=== PATIENT | male | born 1955 | race Caucasian/White ===

== ENCOUNTER 2022-09-10 12:10 | Inpatient (IN) | payer MEDICARE, OTHER ==
[~2022-09-10] VITALS: Ht 167.6 cm; Wt 90.7 kg
[2022-09-10 12:58] LABS: BASOPHILS # (AUTO) 0.1 K/uL (0.0-0.2); BASOPHILS % (AUTO) 0.7 % (0.0-2.0); EOSINOPHILS % (AUTO) 0.8 % (0.0-6.0); HEMATOCRIT 42 % (39-51); HEMOGLOBIN 14.1 g/dL (13.5-17.5); LYMPHOCYTES # (AUTO) 2.1 K/uL (0.8-4.8); LYMPHOCYTES % (AUTO) 17.6 % (20.0-44.0); MEAN CORPUSCULAR HGB CONC 34 g/dl (31.0-36.0); MEAN CORPUSCULAR VOLUME 93 fL (80-96); MONOCYTES # (AUTO) 0.8 K/uL (0.1-1.30); MONOCYTES % (AUTO) 6.5 % (2.0-12.0); NEUTROPHILS # (AUTO) 8.7 K/uL (1.8-8.9); NEUTROPHILS % (AUTO) 74.4 % (43.0-81.0); PLATELET COUNT (AUTO) 267 K/uL (150-450); RED BLOOD CELL COUNT(AUTO) 4.45 MIL/uL (4.5-6.0); WHITE BLOOD COUNT (AUTO) 11.7 K/uL (4.3-11.0)
[2022-09-10 13:18] LABS: CALCIUM, SERUM 8.8 mg/dL (8.5-10.1); CARBON DIOXIDE 23 mmol/L (21-32); CHLORIDE 98 mmol/L (98-107); CREATININE 1.5 mg/dL (0.6-1.3); GLUCOSE 199 mg/dL (74-106); POTASSIUM 3.2 mmol/L (3.5-5.1); SODIUM SERUM 132 mmol/L (136-145); UREA NITROGEN, BLOOD 13 mg/dL (7-18)
[2022-09-10 13:27] LABS: ALANINE AMINOTRANSFERASE 23 U/L (12-78); ALBUMIN 3.2 g/dL (3.4-5.0); ALCOHOL, BLOOD < 3 mg/dL (0-0); ALKALINE PHOSPHATASE 104 U/L (46-116); ASPARTATE AMINOTRANSFERASE 19 U/L (15-37); BILIRUBIN,DIRECT 0.1 mg/dL (0.0-0.2); BILIRUBIN,TOTAL 0.4 mg/dL (0.2-1.0); TOTAL PROTEIN, SERUM 7.1 g/dL (6.4-8.2)
[2022-09-10 13:29] LABS: ACETAMINOPHEN 0 ug/ml (10-30)
[2022-09-10 13:48] LABS: BILIRUBIN,URINE NEGATIVE (NEGATIVE); LEUKOCYTE ESTERASE ,URINE NEGATIVE (NEGATIVE); NITRITE, URINE NEGATIVE (NEGATIVE); PROTEIN,URINE 1+ mg/dl (NEGATIVE); UGLUCOSE NEGATIVE (NEGATIVE); UROBILINOGEN,URINE 0.2 EU/dL (0.2)
[2022-09-10 13:53] LABS: COLOR,URINE STRAW (YELLOW)
[2022-09-10 14:09] LABS: BACTERIA,URINE Rare /HPF (None Seen); RBC,URINE 0-2 /HPF (0-2); SQUAMOUS EPITHELIAL CELL,UR Few /HPF (None Seen); WBC,URINE 0-2 /HPF (0-3)
--- NOTE | 2022-09-10 17:50 | NUR ---
Per MD patient is medically cleared for admission to [facility]
--- NOTE | 2022-09-10 18:41 | NUR ---
MOVE SHEET SUBMITTED.
--- NOTE | 2022-09-10 18:58 | NUR ---
GOT BED 216-A. ADMITTING MADE AWARE.
[2022-09-10] MEDS ORDERED: TEMA15CA PO (19:21)
[2022-09-10] MEDS ORDERED: HALO100A3 IM (19:21)
[2022-09-10] MEDS ORDERED: TRAM50TA2 PO (19:21)
[2022-09-10] MEDS ORDERED: HALO5TAB PO (19:21)
[2022-09-10] MEDS ORDERED: LISI-768 PO (19:21)
[2022-09-10] MEDS ORDERED: ACET325T53 PO (19:21)
[2022-09-10] MEDS ORDERED: ZIPR20CA2 PO (19:21)
[2022-09-10] MEDS ORDERED: METO50TA16 PO (19:21)
[2022-09-10] MEDS ORDERED: OMEP20CA15 PO (19:21)
[2022-09-10] MEDS ORDERED: LORA-259 PO ×2 (19:21)
[2022-09-10] MEDS ORDERED: AMLO10TA4 PO (19:21)
[2022-09-10] MEDS ORDERED: CLONIDINE HCL 0.1 MG TABLET PO PRN (19:30)
--- NOTE | 2022-09-10 19:51 | NUR ---
REPORT GIVEN TO RONY GOVEA RN FOR JEREMY
[2022-09-10] MEDS ORDERED: POTASSIUM CHLORIDE 20 MEQ TAB.PRT.SR PO ONE ×2 (20:00→20:01)
--- NOTE | 2022-09-10 20:30 | NUR ---
PT TRANSFERRING TO [facility]IA HOSPITAL PROTOCOL. ALL BELONGINGS WITH PT.
[2022-09-10] MEDS ORDERED: ACETAMINOPHEN 325 MG TABLET PO PRN (21:00)
[2022-09-10] MEDS ORDERED: MAGNESIUM HYDROXIDE 30 ML UDC PO PRN (21:00)
[2022-09-10] MEDS ORDERED: BLOOD SUGAR DIAGNOSTIC 1 EACH STRIP IN ONE (21:00)
[2022-09-10] MEDS ORDERED: MAG HYDROX/AL HYDROX/SIMETH 30 ML UDC PO PRN (21:00)
[2022-09-10] MEDS ORDERED: TEMAZEPAM 7.5 MG CAPSULE PO PRN (21:00)
[2022-09-10] MEDS: LORAZEPAM 0.5 MG TABLET PO PRN (21:08)
--- NOTE | 2022-09-10 21:10 | NUR ---
RN NOTES: ANXIETY PT.C/O FEELING ANXIOUS , PARANOID, YELLING SCREAMING , UNCOOPERTIVE,NONREDIRECTABLE ,PRN ATIVAN 0.5 MG PO GIVEN PER PT. REQUEST, WILL CONTINUE TO MONITOR.
[2022-09-10 22:00] VITALS: BP 135/78
[2022-09-10] MEDS ORDERED: DEXTROSE 50%-WATER 50 ML DISP.SYRIN IV PRN (22:30)
--- NOTE | 2022-09-10 23:42 | NUR ---
RN NOTES : ADMISSION NOTES: ADMITTED THIS 66Y/O MALE PATIENT ADMIT FROM [facility] ED , INITIALLY FROM [facility]. ADMITTED TO 5150 HOLD PER HOLD DTS DTO. DUE TO INCREASE AGGRESSIVE BEHAVIOR,REFUSING MEDS, UPON FACE TO FACE ASSESSMENT PATIENT IS A&O X2 ,EASILY AGITATED, PARANOID CONFUSED,BIZARRE BEHAVIOR,DISORGNIZED, DISHELVED, UNCOOPERTIVE,POOR DECISION MAKING, EPIOSDES OF YELLING SCREAMING DENIES SI /HI AT THIS TIME, PT. IS POOR HISTORIAN, POOR INSIGHT ,POOR JUDGEMENT , BOTH MD AWARE AND NOTIFIED OF THE ADMISSION, BELONGINGS CONTRABAND WERE DONE , PT. REFUSED SIGNS ADMISSION CONSENT PAPER DUE TO ANXIOUS,ENCOURAGED PT. TO TAKE SHOWER, REFUSED SKIN ASSESSMENT ,ENCOURAGED X3 BUT PT. STRONGLY REFUSED, PT. RIGHTS DISCUSS BY CRYSTAL SYRUP MAKER , PROVIDE THE PT. WITH HANDBOOK, AND MEDICATIONS GUIDE, ENVIRONMENTAL SAFETY CHECK DONE, ENCOURAGED PT. VERBALIZED ANY FEELING CONCERN TO STAFF, ORIENT TO UNIT POLICY, NO ACUTE DISTRESS NOTED,VITAL SIGNS WNL ,DENIES ANY PAIN AT THIS TIME,WILL CONTINUE TO MONITOR FOR Q15 SAFETY AND BEHAVIOR.
--- NOTE | 2022-09-10 23:53 | NUR ---
RN NOTES: REFUSED SKIN ASSESSMENT PT.REFUSED SKIN ASSESSMENT ,DUE TO ANXIOUS PARANOID, YELLING SCREAMING UNCOOPERTIVE, NONREDIRECTABLE , ENCOURAGED X3 PT. STRONGLY REFUSED, PER PT. MY SKIN IS FINE ,WILL CONTINUE TO MONITOR.
[2022-09-11] MEDS: ACETAMINOPHEN 325 MG TABLET PO PRN ×3 (00:27→20:51)
--- NOTE | 2022-09-11 01:07 | NUR ---
RN NOTES: INSOMNIA PT. C/O INSOMNIA PRN RESTORIL 7.5 MG PO GIVEN PER PT. REQUEST , WILL CONTINUE TO MONITOR.
[2022-09-11] MEDS: BLOOD SUGAR DIAGNOSTIC 1 EACH STRIP IN SCH ×4 (07:36→21:09)
[2022-09-11 08:00] VITALS: BP 170/94
--- NOTE | 2022-09-11 08:00 | NUR ---
RN-NOTES PATIENT BS 162MG/DL, REFUSED COVERAGE OF 3 UNITS REGULAR INSULIN. PATIENT STATED" I DON'T NEED ANY INSULIN". OFFERED X3.
[2022-09-11] MEDS: PANTOPRAZOLE 40 MG TABLET.DR PO SCH (08:04)
[2022-09-11] MEDS: LORAZEPAM 0.5 MG TABLET PO PRN (08:05)
--- NOTE | 2022-09-11 08:11 | NUR ---
RN-NOTES NOTED PATIENT RESPONDING TO INTERNAL STIMULI ,TALKING TO SELF,SCREAMING, AND YELLING IN HIS ROOM. ATIVAN 0.5MG P.O GIVEN PRN ORDER. WILL CONT. MONITORING FOR SAFETY AND BEHAVIOR.
[2022-09-11] MEDS: METOPROLOL TARTRATE 50 MG TABLET PO SCH ×2 (08:41→16:20)
[2022-09-11] MEDS: TRAMADOL HCL 50 MG TABLET PO SCH ×3 (08:41→16:20)
[2022-09-11] MEDS: LISINOPRIL (5MG) 5 MG TABLET PO SCH (08:42)
[2022-09-11] MEDS: AMLODIPINE BESYLATE 10 MG TABLET PO SCH (08:42)
--- NOTE | 2022-09-11 09:15 | NUR ---
RN-NOTES PATIENT LYING IN BED AWAKE,GUARDED,CALM AND QUIET AT THIS TIME. NO ACUTE DISTRESS NOTED.
--- NOTE | 2022-09-11 09:26 | NUR ---
KIM Initial Discharge Plan: Patient currently resides at [facility] located at [address] [place] [id number]; . KIM spoke with Viviana (Benefits Consultant); ([phone]) who stated that they would have to discuss with the facility/treatment team to see if pt is welcomed back. She stated pt has a SMITH Rodney (sister) ([phone]) who is involved in patient's care. KIM will contact the sister to gather collateral. KIM will work with the MD, treatment team, and family to help coordinate appropriate discharge.
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
--- NOTE | 2022-09-11 09:30 | NUR ---
Treatment Plan: Pt refused to sign treatment plan due to being suspicious and labile.
--- NOTE | 2022-09-11 09:48 | NUR ---
Social Work Note/Substance Abuse Intervention: Patient was provided with a brief substance abuse intervention and referred to [facility] ([phone]), [facility] ([phone]), and [facility] ([phone]) for smoking.
--- NOTE | 2022-09-11 09:54 | NUR ---
KIM Family: KIM contacted pt's sister Ronel ([phone]) to gather collateral. She stated that she is the DPOA and would want pt back to [facility]. She stated that she will send the documents of the DPOA. Sister stated that pt has been bouncing from hospital to hospital. She stated that she would want pt at the hospital for a month. KIM explained 2957/[id number] process. KIM also gave sister options of nursing facilities for her to review: [facility], [facility], [facility]. She stated she will let this technical report writer know which facility she would want pt to go too. Addendum: 09/11/22 at 1508 by KIM BRAUN Correction ([phone]) Ronel number
--- NOTE | 2022-09-11 11:12 | NUR ---
DPOA: Patient's sister Ronel ([phone]) is the DPOA and sent this principal technical writer document. KIM placed it in the patient's chart. Addendum: 09/11/22 at 1508 by KIM BRAUN Correction ([phone])
[2022-09-11] MEDS: LORAZEPAM 1 MG TABLET PO PRN ×2 (12:10→17:28)
[2022-09-11] MEDS: risperiDONE 1 MG TABLET PO SCH ×2 (12:10→16:19)
--- NOTE | 2022-09-11 12:15 | NUR ---
RN-NOTES NOTED PATIENT RESPONDING TO INTERNAL STIMULI ,TALKING TO SELF,SCREAMING, AND YELLING IN HIS ROOM. ATIVAN 1 MG P.O GIVEN PRN ORDER. WILL CONT. MONITORING FOR SAFETY AND BEHAVIOR.
--- NOTE | 2022-09-11 12:37 | NUR ---
RN-NOTES PATIENT BS 153 MG/DL, REFUSED COVERAGE OF 2 UNITS REGULAR INSULIN. OFFERED X3.
--- NOTE | 2022-09-11 13:15 | NUR ---
RN-NOTES PATIENT LYING IN BED AWAKE A/O X1,GUARDED,CALM AND QUIET AT THIS TIME. NO ACUTE DISTRESS NOTED.
--- NOTE | 2022-09-11 15:06 | NUR ---
Facility Contact: SW spoke with Viviana (Manager Garage); ([phone]) who stated that pt is not welcomed back and they cannot accept pt.
--- NOTE | 2022-09-11 15:09 | NUR ---
DPOA Contact: Patient's sister Ronel ([phone]) and notified that [facility] will not accept pt back. SW had given her options: [facility], [facility], [facility]. She was stating she will possibly want [facility].
[2022-09-11 16:00] VITALS: BP 106/68
--- NOTE | 2022-09-11 17:31 | NUR ---
RN-NOTES PATIENT RESPONDING TO INTERNAL STIMULI ,TALKING TO SELF,SCREAMING, AND YELLING IN HIS ROOM. ATIVAN 1 MG P.O GIVEN PRN ORDER. WILL CONT. MONITORING FOR SAFETY AND BEHAVIOR. PATIENT ALSO REFUSED ACCU CHECK DESPITE ENCOURAGEMENT. OFFERED X3
--- NOTE | 2022-09-11 18:20 | NUR ---
RN-NOTES PATIENT LYING IN BED AWAKE,A/O X1 GUARDED,CALM,NO ACUTE DISTRESS NOTED. NOTED PATIENT WITH EPISODE OF TALKING TO SELF,SCREAMING AND YELLING. REDIRECTED AND PRN MEDICATION GIVEN. COMPLIANT WITH MEDICATION. AMBULATORY STEADY GAIT. ALL NEEDS ATTENDED AND ANTICIPATED. WILL CONT. MONITORING FOR SAFETY AND BEHAVIOR. WILL ENDORSE TO INCOMING NURSE FOR CONTINUITY OF CARE.
[2022-09-11 20:00] VITALS: BP 109/72
--- NOTE | 2022-09-11 20:37 | NUR ---
RN NOTES: PATIENT RESTING IN ROOM, NO S/SX OF ACUTE DISTRESS NOTED. PATIENT EASILY AGITATED, DISORGANIZED, NEEDY DEMENDING, PARANOID,HYPERVERVAL, TALKING TO SELF, EPISODES OF SCREAMING YELLING, AGGRESSIVE , NEEDS FREQUENT REDIRECTION. FOCUS ON MEDS, ALL NEEDS ATTENDED AND ANTICIPATED, DENIES SI/HI AT THIS TIME.ENCOURAGE TO VERBALIZED ANY FEELING OR CONCERN, SAFETY MEASURES IN PLACE. WILL CONTINUE TO MONITOR .
[2022-09-11] MEDS: INSULIN REGULAR, HUMAN 100 UNIT/ML 3 ML VIAL SQ PRN (21:17)
--- NOTE | 2022-09-11 21:17 | NUR ---
RN NOTES: PT. BLOOD IS 150 MG/DL , AND PT. REFUSED REGULAR INSULLIN COVERAGE OF 2 UNITS, ENCOUARGED X3 STILL REFUSED . Addendum: 09/11/22 at 2138 by OMKAR TORRES RN RN NOTES: PT. BLOOD SUGAR IS 150 MG/DL , AND PT. REFUSED REGULAR INSULLIN COVERAGE OF 2 UNITS, ENCOUARGED X3 STRONGLY REFUSED .
[2022-09-11] MEDS: TEMAZEPAM 7.5 MG CAPSULE PO PRN (21:35)
--- NOTE | 2022-09-11 21:37 | NUR ---
RN NOTES:INSOMNIA PT. C/O INSOMNIA PRN RESTORIL 15 MG PO GIVEN PER PT. REQUEST , WILL CONTINUE TO MONITOR.
--- NOTE | 2022-09-11 23:38 | NUR ---
GPS RN NOTE, PATIENT HAS A COMPLAINT OF CHRONIC MIDDLE BACK PAIN AT 6 OUT 10 ON THE PAIN SCALE REQUESTING NAPROXEN AT THIS TIME. PATIENT VITAL SIGNS ARE STABLE. PAGED [facility] AND INFORMED KEVIN HODGSON NP OF MY FINDINGS. KEVIN HODGSON NP ORDERED NAPROXEN 500MG PO Q12HR PRN ORDERED. ALL ORDERS NOTED AND CARRIED OUT. WILL CONTINUE TO MONITOR THIS PATIENT WITH THE HELP OF STAFF.
[2022-09-12] MEDS ORDERED: NAPROXEN 500 MG TABLET PO PRN
[2022-09-12] MEDS: ACETAMINOPHEN 325 MG TABLET PO PRN (04:31)
[2022-09-12 07:20] LABS: BASOPHILS % (AUTO) 0.7 % (0.0-2.0); EOSINOPHILS % (AUTO) 1.2 % (0.0-6.0); HEMATOCRIT 43 % (39-51); HEMOGLOBIN 14.5 g/dL (13.5-17.5); LYMPHOCYTES # (AUTO) 1.2 K/uL (0.8-4.8); LYMPHOCYTES % (AUTO) 19.4 % (20.0-44.0); MEAN CORPUSCULAR HGB CONC 34 g/dl (31.0-36.0); MEAN CORPUSCULAR VOLUME 94 fL (80-96); MONOCYTES # (AUTO) 0.5 K/uL (0.1-1.30); NEUTROPHILS # (AUTO) 4.4 K/uL (1.8-8.9); NEUTROPHILS % (AUTO) 70.7 % (43.0-81.0); PLATELET COUNT (AUTO) 241 K/uL (150-450); RED BLOOD CELL COUNT(AUTO) 4.59 MIL/uL (4.5-6.0); WHITE BLOOD COUNT (AUTO) 6.3 K/uL (4.3-11.0)
[2022-09-12] MEDS: BLOOD SUGAR DIAGNOSTIC 1 EACH STRIP IN SCH ×4 (07:33→21:32)
[2022-09-12] MEDS: PANTOPRAZOLE 40 MG TABLET.DR PO SCH (07:42)
[2022-09-12 07:56] LABS: CALCIUM, SERUM 8.9 mg/dL (8.5-10.1); CREATININE 1.3 mg/dL (0.6-1.3); POTASSIUM 4.2 mmol/L (3.5-5.1)
[2022-09-12 08:00] VITALS: BP 150/79
[2022-09-12] MEDS: LORAZEPAM 1 MG TABLET PO PRN ×3 (08:05→23:50)
[2022-09-12] MEDS: LISINOPRIL (5MG) 5 MG TABLET PO SCH (08:06)
[2022-09-12] MEDS: risperiDONE 1 MG TABLET PO SCH ×3 (08:06→16:10)
[2022-09-12] MEDS: TRAMADOL HCL 50 MG TABLET PO SCH ×3 (08:06→16:10)
[2022-09-12] MEDS: METOPROLOL TARTRATE 50 MG TABLET PO SCH ×2 (08:07→16:10)
[2022-09-12] MEDS: AMLODIPINE BESYLATE 10 MG TABLET PO SCH (08:07)
--- NOTE | 2022-09-12 08:10 | NUR ---
RN-NOTES PATIENT REQUESTING ATIVAN FOR HIS ANXIETY. ATIVAN 1 MG P.O GIVEN PRN ORDER. WILL CONT. MONITORING FOR SAFETY AND BEHAVIOR. PATIENT ALSO REFUSED 3 UNITS OF REGULAR INSULIN EXPLANATION OF THE RISK AND BENEFITS. OFFERED X3
--- NOTE | 2022-09-12 09:15 | NUR ---
RN-NOTES PATIENT LYING IN BED AWAKE A/O X1,GUARDED,CALM AND QUIET AT THIS TIME. NO ACUTE DISTRESS NOTED.
--- NOTE | 2022-09-12 10:25 | NUR ---
RN-NOTES DR. PAINTER MADE AWARE OF PATIENT INSULIN COVERAGE REFUSAL.
--- NOTE | 2022-09-12 10:36 | NUR ---
Dr. Lozada called and gave orders
--- NOTE | 2022-09-12 11:58 | NUR ---
RN-NOTES PATIENT REFUSED ACCU CHECK EXPLANATION RISK AND BENEFITS.STATED" I DON'T NEED INSULIN, SO NO NEED". OFFERED X3
[2022-09-12 16:01] VITALS: BP 141/85
[2022-09-12] MEDS: BENZTROPINE MESYLATE (1 MG) 1 MG TABLET PO SCH (16:10)
--- NOTE | 2022-09-12 16:15 | NUR ---
RN-NOTES PATIENT RESPONDING TO INTERNAL STIMULI ,TALKING TO SELF,SCREAMING, AND YELLING IN HIS ROOM. ATIVAN 1 MG P.O GIVEN PRN ORDER. WILL CONT. MONITORING FOR SAFETY AND BEHAVIOR.
--- NOTE | 2022-09-12 17:21 | NUR ---
RN-NOTES PATIENT STILL REFUSED ACCU CHECK EXPLANATION RISK AND BENEFITS.STATED" I TOLD YOU I DON'T NEED INSULIN, SO NO NEED". OFFERED X3
--- NOTE | 2022-09-12 18:39 | NUR ---
RN-NOTES PATIENT LYING IN BED AWAKE,A/O X1 GUARDED,CALM AND QUIET AT THIS TIME,NO ACUTE DISTRESS NOTED. NOTED PATIENT WITH EPISODE OF TALKING TO SELF,SCREAMING AND YELLING. REDIRECTED AND PRN MEDICATION GIVEN. COMPLIANT WITH MEDICATION. AMBULATORY STEADY GAIT. ABLE TO MAKE NEEDS KNOWN TO THE STAFF.ALL NEEDS ATTENDED AND ANTICIPATED. WILL CONT. MONITORING FOR SAFETY AND BEHAVIOR. WILL ENDORSE TO INCOMING NURSE FOR CONTINUITY OF CARE.
[2022-09-12 20:00] VITALS: BP 136/78
--- NOTE | 2022-09-12 21:33 | NUR ---
RN NOTES: REFUSED ACCU CHECK PT. REFUSED ACCU CHECK , ENCOUARGED X3 EXPLINED RISKS AND BENEFITS, BUT PT. STRONGLY REFUSED DUE TO UNCOOPERTIVE , EASILY AGITATED, PARANOID, ANXIOUS, PER PT. STATES I DONT WANT IT .
[2022-09-12] MEDS: TEMAZEPAM 7.5 MG CAPSULE PO PRN (21:35)
--- NOTE | 2022-09-12 21:36 | NUR ---
RN NOTES: INSOMNIA PT. C/O INSOMNIA PRN RESTORIL 15 MG PO GIVEN PER PT. REQUEST , WILL CONTINUE TO MONITOR.
--- NOTE | 2022-09-12 23:53 | NUR ---
RN NOTES: ANXIETY PT.C/O FEELING ANXIOUS,PARANOID,RESTLESS ,PRN ATIVAN 1 MG PO GIVEN PER PT. REQUEST, WILL CONTINUE TO MONITOR.
[2022-09-13 08:00] VITALS: BP 157/85
[2022-09-13] MEDS: INSULIN REGULAR, HUMAN 100 UNIT/ML 3 ML VIAL SQ PRN ×3 (08:02→21:18)
[2022-09-13] MEDS: BLOOD SUGAR DIAGNOSTIC 1 EACH STRIP IN SCH ×4 (08:02→21:18)
[2022-09-13] MEDS: PANTOPRAZOLE 40 MG TABLET.DR PO SCH (08:03)
[2022-09-13] MEDS: AMLODIPINE BESYLATE 10 MG TABLET PO SCH (09:06)
[2022-09-13] MEDS: TRAMADOL HCL 50 MG TABLET PO SCH ×3 (09:06→16:48)
[2022-09-13] MEDS: BENZTROPINE MESYLATE (1 MG) 1 MG TABLET PO SCH ×2 (09:07→16:47)
[2022-09-13] MEDS: LISINOPRIL (5MG) 5 MG TABLET PO SCH (09:07)
[2022-09-13] MEDS: risperiDONE 1 MG TABLET PO SCH ×3 (09:07→16:47)
[2022-09-13] MEDS: METOPROLOL TARTRATE 50 MG TABLET PO SCH ×2 (09:07→16:48)
[2022-09-13] MEDS: LORAZEPAM 1 MG TABLET PO PRN ×3 (10:01→23:43)
--- NOTE | 2022-09-13 10:05 | NUR ---
NURSE NOTE: PT AGITATED AT THIS TIME. EPISODES OF SCREAMING. ATIVAN PO ADMINISTERED ORDERED. PT MOSHE WELL. WILL CONT TO MONITOR.
--- NOTE | 2022-09-13 11:00 | NUR ---
NURSE NOTE: PT CALM AT THIS TIME. STATES THAT HE'S NOT FEELING ANXIOUS AT THIS TIME. ATIVAN EFFECTIVE. WILL CONT TO MONITOR.
[2022-09-13 16:00] VITALS: BP 132/82
--- NOTE | 2022-09-13 16:20 | NUR ---
NURSE NOTE: PT AGITATED AT THIS TIME. HAVING EPISODES OF SCREAMING. ATIVAN PO ADMINISTERED ORDERE. PT MOSHE WELL. WILL CONT TO MONITOR.
--- NOTE | 2022-09-13 17:00 | NUR ---
NURSE NOTE: PT CALM AT THIS TIME. ATIVAN EFFECTIVE. WILL CONT TO MONITOR.
[2022-09-13 20:40] VITALS: BP 119/76
[2022-09-13] MEDS: TEMAZEPAM 7.5 MG CAPSULE PO PRN (21:19)
--- NOTE | 2022-09-13 21:21 | NUR ---
BS check done 140. Pt refused 2 units of insulin sliding scale. Risk and benefits explained. Offered x 3 and still refuse. No s/s of hypo/hyperglycemia noted. Pt c/o insomnia. Least restrictive measures ineffective. Restoril 15 mg po prn given as ordered. Will continue to monitor.
--- NOTE | 2022-09-13 22:30 | NUR ---
Post 1 hr Restoril effective. Pt asleep in bed easy to arouse. Respiration even and unlabored without SOB noted. No s/s of any kind of distress. Frequent visual check done for safety. Will continue to monitor. Will endorse to next shift.
--- NOTE | 2022-09-13 23:43 | NUR ---
Pt awake and c/o anxiety. Has episodes of uncontrolled outburst of yelling out loud. Least restrictive measures ineffective. Ativan 1 mg po prn given as ordered. Will continue to monitor.
--- NOTE | 2022-09-14 01:00 | NUR ---
Post 1 hr Ativan effective. Pt calm and asleep in bed easy to arouse. Frequent visual check done for safety. Will continue to monitor. Will endorse to next shift.
[2022-09-14] MEDS: BLOOD SUGAR DIAGNOSTIC 1 EACH STRIP IN SCH ×4 (07:56→21:19)
[2022-09-14] MEDS: PANTOPRAZOLE 40 MG TABLET.DR PO SCH (07:56)
[2022-09-14 08:00] VITALS: BP 155/98
[2022-09-14] MEDS: METOPROLOL TARTRATE 50 MG TABLET PO SCH ×2 (08:32→17:07)
[2022-09-14] MEDS: LISINOPRIL (5MG) 5 MG TABLET PO SCH (08:33)
[2022-09-14] MEDS: AMLODIPINE BESYLATE 10 MG TABLET PO SCH (08:33)
[2022-09-14] MEDS: BENZTROPINE MESYLATE (1 MG) 1 MG TABLET PO SCH ×2 (08:33→17:07)
[2022-09-14] MEDS: risperiDONE 1 MG TABLET PO SCH ×3 (08:34→17:07)
[2022-09-14] MEDS: TRAMADOL HCL 50 MG TABLET PO SCH ×3 (08:34→17:07)
[2022-09-14] MEDS: LORAZEPAM 1 MG TABLET PO PRN ×2 (09:50→20:40)
--- NOTE | 2022-09-14 09:51 | NUR ---
Pt c/o anxiety medicated with ativan 1mg po will continue to monitor .
--- NOTE | 2022-09-14 13:00 | NUR ---
Patient refused insulin BS 130 .Encourage still refused will continue to monitor .
[2022-09-14 16:00] VITALS: BP 120/88
[2022-09-14] MEDS: INSULIN REGULAR, HUMAN 100 UNIT/ML 3 ML VIAL SQ PRN ×2 (17:34→22:35)
--- NOTE | 2022-09-14 18:00 | NUR ---
Patient refused insulin BS 167 .Encourage still refused will continue to monitor .
[2022-09-14 19:38] VITALS: BP 115/77
--- NOTE | 2022-09-14 21:19 | NUR ---
RN NOTE PATIENT BLOOD SUGAR 166MG/DL. PATIENT REFUSED COVERAGE OF 3UNITS REGULAR INSULIN. OFFERED X3.
[2022-09-14] MEDS: TEMAZEPAM 7.5 MG CAPSULE PO PRN (21:26)
[2022-09-15 08:00] VITALS: BP 141/86
[2022-09-15] MEDS: PANTOPRAZOLE 40 MG TABLET.DR PO SCH (08:12)
[2022-09-15] MEDS: BLOOD SUGAR DIAGNOSTIC 1 EACH STRIP IN SCH ×4 (08:12→21:39)
--- NOTE | 2022-09-15 08:12 | NUR ---
GPS Notes: Patient in bed, asleep but easily arouses to voice. Patient is alert, oriented. No c/o pain or discomfort at this time. Patient is cooperative and denies any SI/HI. Blood sugar check done, result was 132 mg/dl, patient refused to have his insulin given to him. Will continue to monitor patient throughout shift.
[2022-09-15] MEDS: AMLODIPINE BESYLATE 10 MG TABLET PO SCH (08:45)
[2022-09-15] MEDS: LISINOPRIL (5MG) 5 MG TABLET PO SCH (08:46)
[2022-09-15] MEDS: risperiDONE 1 MG TABLET PO SCH ×3 (08:46→16:15)
[2022-09-15] MEDS: METOPROLOL TARTRATE 50 MG TABLET PO SCH ×2 (08:46→16:15)
[2022-09-15] MEDS: TRAMADOL HCL 50 MG TABLET PO SCH ×3 (08:47→16:15)
[2022-09-15] MEDS: BENZTROPINE MESYLATE (1 MG) 1 MG TABLET PO SCH ×2 (08:47→16:16)
[2022-09-15] MEDS: ACETAMINOPHEN 325 MG TABLET PO PRN (10:49)
--- NOTE | 2022-09-15 11:46 | NUR ---
Blood sugar done, result was 177, patient refused to have his insulin shot given to him. Explained the importance of administering the insulin but patient still declined.
--- NOTE | 2022-09-15 12:41 | NUR ---
Dr. Lozada notified of EKG result for the patient and gave the number for Dr. Valle, [id number] @
[2022-09-15] MEDS: LORAZEPAM 1 MG TABLET PO PRN (14:12)
--- NOTE | 2022-09-15 14:12 | NUR ---
Patient has episodes of outbursts of yelling, Ativan given and taken by the patient as ordered by MD.
--- NOTE | 2022-09-15 15:12 | NUR ---
Patient resting comfortably in bed, awake, calm and no yelling noted at this time.
[2022-09-15 16:02] VITALS: BP 138/81
--- NOTE | 2022-09-15 17:15 | NUR ---
Blood sugar 184, patient declined to have his insulin, tried to explain the importance of insulin but patient still refused.
--- NOTE | 2022-09-15 18:36 | NUR ---
RN GPS CLOSING NOTES: Patient in bed asleep but easily arouses to voice. Patient denies any pain or discomfort at this time. No yelling episodes noted right now. Will endorse to incoming shift for continuity of care.
[2022-09-15 20:58] VITALS: BP 140/86
[2022-09-15] MEDS ORDERED: risperiDONE 1 MG TABLET PO SCH (22:00)
[2022-09-15] MEDS: TEMAZEPAM 7.5 MG CAPSULE PO PRN (22:35)
[2022-09-16] MEDS: LORAZEPAM 1 MG TABLET PO PRN ×2 (04:13→11:20)
[2022-09-16 08:00] VITALS: BP 143/85
[2022-09-16] MEDS: PANTOPRAZOLE 40 MG TABLET.DR PO SCH (08:26)
[2022-09-16] MEDS: BLOOD SUGAR DIAGNOSTIC 1 EACH STRIP IN SCH ×4 (08:26→22:00)
[2022-09-16] MEDS: AMLODIPINE BESYLATE 10 MG TABLET PO SCH (08:37)
[2022-09-16] MEDS: risperiDONE 1 MG TABLET PO SCH ×4 (08:37→21:03)
[2022-09-16] MEDS: BENZTROPINE MESYLATE (1 MG) 1 MG TABLET PO SCH ×2 (08:38→17:16)
[2022-09-16] MEDS: METOPROLOL TARTRATE 50 MG TABLET PO SCH ×2 (08:38→17:16)
[2022-09-16] MEDS: LISINOPRIL (5MG) 5 MG TABLET PO SCH (08:39)
[2022-09-16] MEDS: TRAMADOL HCL 50 MG TABLET PO SCH ×3 (08:40→17:16)
[2022-09-16] MEDS: ACETAMINOPHEN 325 MG TABLET PO PRN (11:03)
--- NOTE | 2022-09-16 11:20 | NUR ---
NURSE NOTE: PT ANXIOUS AT THIS TIME. OCC OUTBURST OF YELLING OUT LOUD. ATIVAN PO ADMINISTERED ORDERED. PT MOSHE WELL. WILL CONT TO MONITOR.
--- NOTE | 2022-09-16 11:32 | NUR ---
Court Notification: KIM contacted pt's sister Ronel CRISTOBAL ([phone]) to notify of 5250 hearing. KIM left a voicemail.
--- NOTE | 2022-09-16 12:00 | NUR ---
NURSE NOTE: PT CALM AT THIS TIME. ATIVAN EFFECTIVE. WILL CONT TO MONITOR.
[2022-09-16] MEDS: INSULIN REGULAR, HUMAN 100 UNIT/ML 3 ML VIAL SQ PRN ×2 (12:17→21:10)
--- NOTE | 2022-09-16 14:48 | NUR ---
Court Hearing: Patient's court hearing for 9280 was today and it was upheld for GD.
[2022-09-16 16:00] VITALS: BP 121/77
[2022-09-16 20:03] VITALS: BP 119/70
[2022-09-16] MEDS: TEMAZEPAM 7.5 MG CAPSULE PO PRN (21:13)
--- NOTE | 2022-09-16 22:03 | NUR ---
RN NOTE; PATIENT REFUSED BS CHECKED.
[2022-09-17] MEDS: ACETAMINOPHEN 325 MG TABLET PO PRN (02:18)
[2022-09-17] MEDS: LORAZEPAM 1 MG TABLET PO PRN ×2 (02:36→11:02)
[2022-09-17] MEDS: BLOOD SUGAR DIAGNOSTIC 1 EACH STRIP IN SCH ×4 (07:30→21:14)
[2022-09-17 08:00] VITALS: BP 142/77
[2022-09-17] MEDS: PANTOPRAZOLE 40 MG TABLET.DR PO SCH (08:03)
[2022-09-17] MEDS: TRAMADOL HCL 50 MG TABLET PO SCH ×3 (08:08→16:29)
[2022-09-17] MEDS: METOPROLOL TARTRATE 50 MG TABLET PO SCH ×2 (08:09→16:29)
[2022-09-17] MEDS: risperiDONE 1 MG TABLET PO SCH ×4 (08:09→21:14)
[2022-09-17] MEDS: BENZTROPINE MESYLATE (1 MG) 1 MG TABLET PO SCH ×2 (08:09→16:29)
[2022-09-17] MEDS: AMLODIPINE BESYLATE 10 MG TABLET PO SCH (08:10)
[2022-09-17] MEDS: LISINOPRIL (5MG) 5 MG TABLET PO SCH (08:10)
--- NOTE | 2022-09-17 11:02 | NUR ---
RN-NOTES PATIENT REQUESTING ATIVAN FOR HIS ANXIETY. ATIVAN 1 MG P.O GIVEN PRN ORDER. WILL CONT. MONITORING FOR SAFETY AND BEHAVIOR.
--- NOTE | 2022-09-17 11:50 | NUR ---
RN-NOTES PATIENT BS WAS 162MG/DL, REFUSED 3 UNITS OF R INSULIN. OFFERED X3
--- NOTE | 2022-09-17 12:05 | NUR ---
RN-NOTES PATIENT LYING IN BED AWAKE A/O X1,GUARDED,CALM AND QUIET AT THIS TIME. NO ACUTE DISTRESS NOTED.
--- NOTE | 2022-09-17 13:07 | NUR ---
SNF Referral: KIM sent clinicals to Jennifer Dickinson ([phone]) for placement. KIM sent H & P, progress notes, and medication list.
--- NOTE | 2022-09-17 14:56 | NUR ---
SNF Contact: SW spoke with Jennifer Dickinson ([phone]) who stated pt is accepted at [place] [facility].
--- NOTE | 2022-09-17 14:57 | NUR ---
DPOA Contact: Patient's sister Ronel ([phone]) and left a voicemail that pt got accepted at [facility].
[2022-09-17 16:00] VITALS: BP 147/79
--- NOTE | 2022-09-17 18:45 | NUR ---
RN-NOTES PATIENT LYING IN BED AWAKE,A/OX2 GUARDED,CALM AT THIS TIME,NO ACUTE DISTRESS NOTED. COMPLIANT WITH MEDICATIONS. AMBULATORY STEADY GAIT.NOTED PATIENT WITH EPISODE OF SCREAMING AND YELLING TO SELF.ALL NEEDS ATTENDED AND ANTICIPATED. WILL CONT.MONITORING FOR SAFETY AND BEHAVIOR. WILL ENDORSE TO INCOMING NURSE FOR CONTINUITY OF CARE.
[2022-09-17 19:52] VITALS: BP 131/76
--- NOTE | 2022-09-17 20:07 | NUR ---
GPS TRANSPORTATION SECURITY OFFICER NOTE: PATIENT AWAKE RESTING IN HIS ROOM, NO S/SX OF ACUTE DISTRESS NOTED. AMBULATORY DENIES SI/HI AT THIS TIME.DENIES PAIN AT THIS TIME. ENCOURAGE TO VERBALIZED ANY FEELING OR CONCERN, SAFETY MEASURES IN PLACE. WILL CONTINUE TO MONITOR SAFETY AND ANTICIPATE/ ATTEND PT'S NEEDS. EDUCATED PT WITH THE USE OF CALL LIGHT FOR NEEDS.
[2022-09-17] MEDS: INSULIN REGULAR, HUMAN 100 UNIT/ML 3 ML VIAL SQ PRN (21:15)
--- NOTE | 2022-09-17 21:28 | NUR ---
DUE MEDICATIONS GIVEN TO PT- COMPLIANT WITH HIS PO MEDS, TOOK MEDS WITHOUT DIFFICULTY, ACCU CHECK DONE NOTED BS OF 136, PT REFUSED INSULIN COVERAGE, RISK AND BENEFITS EXPLAINED TO PT - STILL REFUSED INSULIN. WILL CONT TO MONITOR AND ANTICIPATE NEEDS.
[2022-09-17] MEDS: TEMAZEPAM 7.5 MG CAPSULE PO PRN (22:50)
--- NOTE | 2022-09-17 22:57 | NUR ---
Pt remains awake, and getting loud, talking to himself, PRN Restoril for insomnia given as ordered, cont to monitor and anticipate needs.
--- NOTE | 2022-09-17 23:50 | NUR ---
Post 1 hr Restoril effective. Pt asleep in bed easy to arouse. Respiration even and unlabored without SOB noted. No s/s of any kind of distress. Q15 min check by hospital clinic assistant/ nurse done for safety. Will continue to monitor.
--- NOTE | 2022-09-18 01:03 | NUR ---
Pt noted sleeping, easy to arouse, breathing even and unlabored. Safety measures observed. Will cont to monitor.
[2022-09-18] MEDS: LORAZEPAM 1 MG TABLET PO PRN ×3 (02:26→22:36)
--- NOTE | 2022-09-18 02:28 | NUR ---
Pt awake noted with episode of anxiety/ agitation m/b restlessness , pacing in room, and making noise, PRN Ativan as ordered given. Will cont to monitor.
--- NOTE | 2022-09-18 03:28 | NUR ---
Post 1 hr Ativan-effective, pt still awake, calm, no s/sx of resp distress, will cont to monitor.
--- NOTE | 2022-09-18 06:10 | NUR ---
Pt is awake , no s/sx of resp distress, karoline his meds. Will cont to monitor and endorse elizabet to am oncoming nurse.
[2022-09-18] MEDS: BLOOD SUGAR DIAGNOSTIC 1 EACH STRIP IN SCH ×4 (07:30→21:46)
[2022-09-18] MEDS: PANTOPRAZOLE 40 MG TABLET.DR PO SCH (07:59)
[2022-09-18 08:00] VITALS: BP 135/82
[2022-09-18] MEDS: risperiDONE 1 MG TABLET PO SCH ×4 (08:08→21:16)
[2022-09-18] MEDS: TRAMADOL HCL 50 MG TABLET PO SCH ×3 (08:08→17:08)
[2022-09-18] MEDS: BENZTROPINE MESYLATE (1 MG) 1 MG TABLET PO SCH ×2 (08:08→17:08)
[2022-09-18] MEDS: METOPROLOL TARTRATE 50 MG TABLET PO SCH ×2 (08:09→17:09)
[2022-09-18] MEDS: AMLODIPINE BESYLATE 10 MG TABLET PO SCH (08:09)
[2022-09-18] MEDS: LISINOPRIL (5MG) 5 MG TABLET PO SCH (08:09)
--- NOTE | 2022-09-18 12:00 | NUR ---
RN-NOTES PATIENT BS WAS 145MG/DL, REFUSED COVERAGE OF 2 UNITS OF R INSULIN. OFFERED X3
--- NOTE | 2022-09-18 15:51 | NUR ---
RN-NOTES PATIENT REQUESTING ATIVAN FOR HIS ANXIETY. ATIVAN 1 MG P.O GIVEN PRN ORDER. WILL CONT. MONITORING FOR SAFETY AND BEHAVIOR.
[2022-09-18 16:00] VITALS: BP 110/67
--- NOTE | 2022-09-18 16:30 | NUR ---
RN-NOTES PATIENT LYING IN BED AWAKE A/O X1,GUARDED,CALM AND QUIET AT THIS TIME. NO ACUTE DISTRESS NOTED.
--- NOTE | 2022-09-18 19:00 | NUR ---
RN-NOTES PATIENT LYING IN BED AWAKE,A/OX2 GUARDED,NO ACUTE DISTRESS NOTED. COMPLIANT WITH MEDICATIONS. AMBULATORY STEADY GAIT.NOTED PATIENT WITH EPISODE OF SCREAMING AND YELLING TO SELF. PRN MEDICATION GIVEN..ALL NEEDS ATTENDED AND ANTICIPATED. WILL CONT.MONITORING FOR SAFETY AND BEHAVIOR. WILL ENDORSE TO INCOMING NURSE FOR CONTINUITY OF CARE.
[2022-09-18 20:00] VITALS: BP 133/78
--- NOTE | 2022-09-18 20:00 | NUR ---
RN NOTES:PATIENT IN BED RESTING, NO ACUTE DISTRESS NOTED. PATIENT REMAINS ANXIOUS, RESPONDING TO INTERNAL STIMULI, COOPERATIVE TO CARE, NEEDY, SCREAMING INTERMITTENTLY. DENIES SI/HI/AVH AT THIS TIME. ENCOURAGED TO VERBALIZED ANY FEELING OR CONCERN,SAFETY PRECAUTIONS MAINTAINED. WILL CONTINUE TO MONITOR Q15 MIN ROUNDS FOR SAFETY AND BEHAVIOR.
--- NOTE | 2022-09-18 21:47 | NUR ---
RN NOTES: REFUSED ACCU CHECK PT. REFUSED ACCU CHECK , ENCOUARGED X3 EXPLINED RISKS AND BENEFITS, BUT PT. STRONGLY REFUSED , EASILY AGITATED, PARANOID, ANXIOUS, PER PT. STATES I DONT NEED TO BE CHECK .
--- NOTE | 2022-09-18 22:36 | NUR ---
RN NOTES: ANXIETY PT.C/O FEELING ANXIOUS,PARANOID,RESTLESS ,PRN ATIVAN 1 MG PO GIVEN PER PT. REQUEST, WILL CONTINUE TO MONITOR.
[2022-09-19] MEDS: ACETAMINOPHEN 325 MG TABLET PO PRN (04:47)
[2022-09-19] MEDS: BLOOD SUGAR DIAGNOSTIC 1 EACH STRIP IN SCH ×4 (07:30→21:20)
[2022-09-19] MEDS: PANTOPRAZOLE 40 MG TABLET.DR PO SCH (07:47)
[2022-09-19 08:00] VITALS: BP 148/88
[2022-09-19] MEDS: LISINOPRIL (5MG) 5 MG TABLET PO SCH (08:07)
[2022-09-19] MEDS: risperiDONE 1 MG TABLET PO SCH ×4 (08:07→21:21)
[2022-09-19] MEDS: AMLODIPINE BESYLATE 10 MG TABLET PO SCH (08:07)
[2022-09-19] MEDS: BENZTROPINE MESYLATE (1 MG) 1 MG TABLET PO SCH ×2 (08:07→16:26)
[2022-09-19] MEDS: TRAMADOL HCL 50 MG TABLET PO SCH ×3 (08:08→16:27)
[2022-09-19] MEDS: METOPROLOL TARTRATE 50 MG TABLET PO SCH ×2 (08:08→16:28)
[2022-09-19] MEDS: LORAZEPAM 1 MG TABLET PO PRN (08:45)
--- NOTE | 2022-09-19 08:45 | NUR ---
RN-NOTES NOTED PATIENT RESPONDING TO INTERNAL STIMULI SCREAMING AND YELLING TO SELF. REDIRECTED AND ATIVAN 1MG P.O GIVEN PRN ORDER. WILL CONT. MONITORING FOR SAFETY AND BEHAVIOR.
--- NOTE | 2022-09-19 09:45 | NUR ---
RN-NOTES PATIENT LYING IN BED AWAKE A/O X1,GUARDED,CALM AND QUIET AT THIS TIME. NO ACUTE DISTRESS NOTED.
[2022-09-19 16:01] VITALS: BP_SYST 100; BP_SYST 94; BP_DIAS 62
--- NOTE | 2022-09-19 18:30 | NUR ---
RN-NOTES PATIENT LYING IN BED AWAKE,A/OX2 GUARDED,NO ACUTE DISTRESS NOTED. COMPLIANT WITH P.O MEDICATIONS. PATIENT REFUSED ACCU CHECK THIS SHIFT, DR. ELLSWORTH MADE AWARE OF THE REFUSAL. AMBULATORY STEADY GAIT.NOTED PATIENT WITH EPISODE OF SCREAMING AND YELLING TO SELF. PRN MEDICATION GIVEN.ALL NEEDS ATTENDED AND ANTICIPATED. WILL CONT.MONITORING FOR SAFETY AND BEHAVIOR. WILL ENDORSE TO INCOMING NURSE FOR CONTINUITY OF CARE.
[2022-09-19 20:00] VITALS: BP 108/59
[2022-09-19] MEDS: INSULIN REGULAR, HUMAN 100 UNIT/ML 3 ML VIAL SQ PRN (21:23)
--- NOTE | 2022-09-19 21:30 | NUR ---
Blood sugar 145 refused Insulin coverage "I don't take that insulin at home" explained to him the importance of keeping his sugars 120 and below refused the insulin and asked for a pudding!!
[2022-09-19] MEDS: TEMAZEPAM 7.5 MG CAPSULE PO PRN (22:55)
[2022-09-20] MEDS: ACETAMINOPHEN 325 MG TABLET PO PRN (03:00)
--- NOTE | 2022-09-20 04:53 | NUR ---
GPS RN NOTES: ALERT AND ORIENTATED X2 STEADY GAIT AMBULATES HE HALLWAY WHEN HE NEDS TO LOCATE HIS NURSE AND THEN BACK TO HIS ROOM WHERE HE STAYS. VERBALIZES HIS NEEDS.HE HAD 2 EPISODES OF YELLING OUT LOUDLY. TYLENOL GIVEN AT 0315 FOR HEADACHE. SOFT SPOKEN AND CALM BLOD SUGAR 145 REFUSED REG INSULIN
[2022-09-20 08:00] VITALS: BP 158/90
[2022-09-20] MEDS: AMLODIPINE BESYLATE 10 MG TABLET PO SCH (08:15)
[2022-09-20] MEDS: TRAMADOL HCL 50 MG TABLET PO SCH ×3 (08:15→16:57)
[2022-09-20] MEDS: BENZTROPINE MESYLATE (1 MG) 1 MG TABLET PO SCH ×2 (08:15→16:57)
[2022-09-20] MEDS: LISINOPRIL (5MG) 5 MG TABLET PO SCH (08:16)
[2022-09-20] MEDS: BLOOD SUGAR DIAGNOSTIC 1 EACH STRIP IN SCH ×4 (08:16→22:07)
[2022-09-20] MEDS: PANTOPRAZOLE 40 MG TABLET.DR PO SCH (08:16)
[2022-09-20] MEDS: METOPROLOL TARTRATE 50 MG TABLET PO SCH ×2 (08:16→16:57)
[2022-09-20] MEDS: risperiDONE 1 MG TABLET PO SCH ×4 (08:16→22:04)
[2022-09-20] MEDS: LORAZEPAM 1 MG TABLET PO PRN (11:50)
[2022-09-20 16:00] VITALS: BP 135/75
[2022-09-20 20:12] VITALS: BP 115/77
[2022-09-20] MEDS: TEMAZEPAM 7.5 MG CAPSULE PO PRN (22:08)
[2022-09-20] MEDS: INSULIN REGULAR, HUMAN 100 UNIT/ML 3 ML VIAL SQ PRN (22:20)
--- NOTE | 2022-09-20 22:36 | NUR ---
BS check done @ 2200, 148 result. Pt refused 2 units insulin sliding scale coverage. Explained risk and benefits. Offered x3 and still refused. Pt states, "I dont need insulin right now, i dont want it." No s/s of hypo/hyperglycemia. No s/s of any kind of distress. Pt c/o insomnia. Least restrictive measures ineffective. Restoril 15 mg po prn given as ordered. Will continue to monitor.
--- NOTE | 2022-09-21 00:21 | NUR ---
Post 1 hr Restoril effective. Pt asleep in bed easy to arouse. Frequent visual check done for safety. Will continue to monitor.
[2022-09-21] MEDS: ACETAMINOPHEN 325 MG TABLET PO PRN (05:58)
--- NOTE | 2022-09-21 05:59 | NUR ---
Pt c/o right shoulder pain 12/18. Tylenol 650 mg po prn given as ordered. Will continue to monitor.
--- NOTE | 2022-09-21 06:50 | NUR ---
Tylenol effective. MS 0/10. Will continue to monitor. Will endorse to next shift.
[2022-09-21] MEDS: BLOOD SUGAR DIAGNOSTIC 1 EACH STRIP IN SCH ×4 (07:30→21:13)
[2022-09-21 08:00] VITALS: BP 139/90
[2022-09-21] MEDS: LISINOPRIL (5MG) 5 MG TABLET PO SCH (08:40)
[2022-09-21] MEDS: TRAMADOL HCL 50 MG TABLET PO SCH ×3 (08:40→17:51)
[2022-09-21] MEDS: PANTOPRAZOLE 40 MG TABLET.DR PO SCH (08:40)
[2022-09-21] MEDS: risperiDONE 1 MG TABLET PO SCH ×2 (08:40→17:50)
[2022-09-21] MEDS: BENZTROPINE MESYLATE (1 MG) 1 MG TABLET PO SCH ×2 (08:40→17:52)
[2022-09-21] MEDS: AMLODIPINE BESYLATE 10 MG TABLET PO SCH (08:41)
[2022-09-21] MEDS: METOPROLOL TARTRATE 50 MG TABLET PO SCH ×2 (09:00→17:51)
[2022-09-21] MEDS: LORAZEPAM 1 MG TABLET PO PRN (10:13)
--- NOTE | 2022-09-21 10:15 | NUR ---
NURSE NOTE: PT HAVING OUTBURSTS OF YELLING OUT LOUD, ATIVAN PO ADMINISTERED ORDERED. PT MOSHE WELL WILL CONT TO MONITOR.
--- NOTE | 2022-09-21 11:15 | NUR ---
NURSE NOTE: PT CALM AT THIS TIME. NO YELLING NOTED. ATIVAN EFFECTIVE AT THIS TIME. WILL CONT TO MONITOR.
[2022-09-21] MEDS ORDERED: risperiDONE 1 MG TABLET PO SCH ×2 (13:00→22:00)
[2022-09-21 16:00] VITALS: BP 127/91
[2022-09-21 19:46] VITALS: BP 106/56
[2022-09-21] MEDS: TEMAZEPAM 7.5 MG CAPSULE PO PRN (22:56)
[2022-09-22] MEDS: ACETAMINOPHEN 325 MG TABLET PO PRN (01:19)
--- NOTE | 2022-09-22 07:50 | NUR ---
rn opening note pt alert and oriented x2. pt ambulates in hallway with steady gait.verbally responsive and able to express needs. all safety measures in place. no signs of pain or discomfort at this time.
[2022-09-22 08:00] VITALS: BP 131/73
[2022-09-22] MEDS: BLOOD SUGAR DIAGNOSTIC 1 EACH STRIP IN SCH ×4 (08:05→21:19)
[2022-09-22] MEDS: PANTOPRAZOLE 40 MG TABLET.DR PO SCH (08:17)
[2022-09-22] MEDS: AMLODIPINE BESYLATE 10 MG TABLET PO SCH (08:17)
[2022-09-22] MEDS: BENZTROPINE MESYLATE (1 MG) 1 MG TABLET PO SCH ×2 (08:17→17:19)
[2022-09-22] MEDS: LISINOPRIL (5MG) 5 MG TABLET PO SCH (08:18)
[2022-09-22] MEDS: risperiDONE 1 MG TABLET PO SCH ×3 (08:18→21:13)
[2022-09-22] MEDS: TRAMADOL HCL 50 MG TABLET PO SCH ×3 (08:18→17:19)
[2022-09-22] MEDS: METOPROLOL TARTRATE 50 MG TABLET PO SCH ×2 (10:39→17:19)
[2022-09-22] MEDS: LORAZEPAM 1 MG TABLET PO PRN (11:36)
[2022-09-22 15:55] VITALS: BP 113/64
--- NOTE | 2022-09-22 18:00 | NUR ---
pt refused insulin shots two times during shift. provided education. pt still refused.
--- NOTE | 2022-09-22 19:13 | NUR ---
rn closing note pt in bed.a/o x2. no signs of pain or discomfort at this time. no significant changes at this time. endorsed to award clerk rn for contiuity of care.
[2022-09-22 19:56] VITALS: BP 109/52
[2022-09-22] MEDS: INSULIN REGULAR, HUMAN 100 UNIT/ML 3 ML VIAL SQ PRN (21:19)
[2022-09-22] MEDS: TEMAZEPAM 7.5 MG CAPSULE PO PRN (21:54)
--- NOTE | 2022-09-22 22:00 | NUR ---
RN NOTE PATIENT BLOOD SUGAR 136MG/DL. PATIENT REFUSED COVERAGE OF 2UNITS REGULAR INSULIN. OFFERED X3. PATIENT CONTINUED TO REFUSE.
[2022-09-23] MEDS: ACETAMINOPHEN 325 MG TABLET PO PRN (04:21)
--- NOTE | 2022-09-23 04:21 | NUR ---
RN note: Patient c/o headache,requested and given Tylenol 650 mg PO .
[2022-09-23 08:00] VITALS: BP 145/85
[2022-09-23] MEDS: LISINOPRIL (5MG) 5 MG TABLET PO SCH (08:07)
[2022-09-23] MEDS: TRAMADOL HCL 50 MG TABLET PO SCH ×3 (08:07→17:27)
[2022-09-23] MEDS: AMLODIPINE BESYLATE 10 MG TABLET PO SCH (08:07)
[2022-09-23] MEDS: risperiDONE 1 MG TABLET PO SCH ×3 (08:08→22:11)
[2022-09-23] MEDS: BLOOD SUGAR DIAGNOSTIC 1 EACH STRIP IN SCH ×4 (08:08→22:11)
[2022-09-23] MEDS: METOPROLOL TARTRATE 50 MG TABLET PO SCH ×2 (08:08→17:28)
[2022-09-23] MEDS: PANTOPRAZOLE 40 MG TABLET.DR PO SCH (08:08)
[2022-09-23] MEDS: BENZTROPINE MESYLATE (1 MG) 1 MG TABLET PO SCH ×2 (08:08→17:28)
[2022-09-23] MEDS: LORAZEPAM 1 MG TABLET PO PRN (09:17)
--- NOTE | 2022-09-23 09:20 | NUR ---
NURSE NOTE: PT ANXIOUS AT THIS TIME. REQUESTED ATIVAN. ATIVAN PO ADMINISTERED ORDERED. PT MOSHE WELL. WILL CONT TO MONITOR.
--- NOTE | 2022-09-23 10:20 | NUR ---
NURSE NOTE: PT CALM AT THIS TIME. ATIVAN EFFECTIVE. WILL CONT TO MONITOR.
[2022-09-23 15:13] LABS: CALCIUM, SERUM 8.5 mg/dL (8.5-10.1); CREATININE 1.3 mg/dL (0.6-1.3); POTASSIUM 4.1 mmol/L (3.5-5.1)
[2022-09-23 16:00] VITALS: BP 143/64
--- NOTE | 2022-09-23 18:44 | NUR ---
NURSE NOTE: PT MED COMPLIANT, BUT REFUSED INSULIN COVERAGE.
[2022-09-23 19:46] VITALS: BP 115/75
[2022-09-23 20:00] VITALS: BP 115/75
[2022-09-23] MEDS: TEMAZEPAM 7.5 MG CAPSULE PO PRN (22:07)
[2022-09-24] MEDS: ACETAMINOPHEN 325 MG TABLET PO PRN (02:13)
[2022-09-24] MEDS: BLOOD SUGAR DIAGNOSTIC 1 EACH STRIP IN SCH ×2 (07:30→12:25)
[2022-09-24 08:00] VITALS: BP 118/78
--- NOTE | 2022-09-24 08:13 | NUR ---
SW Discharge Note: Patient will be discharged to [facility] located at [address] [place] [id number]; ([phone]) via ambulance. Umm sevilla from [facility] ([phone]) accepted pt and is welcoming pt today. Pts sister LEVAR Rodney ([phone]) Pt appears to be alert and oriented x2. Pt denies visual/auditory hallucinations. Pt denies suicidal or homicidal ideation. Patient will continue to follow-up with (Psychiatrist) Dr. Lozada [address] [facility] [address], [place] [address]; ([phone]). (Ticker Wirer) Dr. Patricia [address] [facility] [address], [place] [address]; ([phone]).
[2022-09-24] MEDS: PANTOPRAZOLE 40 MG TABLET.DR PO SCH (08:16)
[2022-09-24] MEDS: BENZTROPINE MESYLATE (1 MG) 1 MG TABLET PO SCH (08:17)
[2022-09-24] MEDS: risperiDONE 1 MG TABLET PO SCH (08:17)
[2022-09-24] MEDS: TRAMADOL HCL 50 MG TABLET PO SCH ×2 (08:18→12:32)
[2022-09-24] MEDS: LISINOPRIL (5MG) 5 MG TABLET PO SCH (08:18)
[2022-09-24] MEDS: AMLODIPINE BESYLATE 10 MG TABLET PO SCH (08:18)
[2022-09-24 08:19] VITALS: BP 118/78
[2022-09-24] MEDS: METOPROLOL TARTRATE 50 MG TABLET PO SCH (08:19)
[2022-09-24] MEDS: LORAZEPAM 1 MG TABLET PO PRN (10:32)
--- NOTE | 2022-09-24 10:32 | NUR ---
RN-NOTES PATIENT REQUESTING ATIVAN FOR HIS ANXIETY. ATIVAN 1 MG P.O GIVEN PRN ORDER. WILL CONT. MONITORING FOR SAFETY AND BEHAVIOR.
--- NOTE | 2022-09-24 11:03 | NUR ---
Dr. Lozada gave an order to d/c hold and d/c to [facility], to continue same meds including prn and to follow up with psych and medical doctors.
--- NOTE | 2022-09-24 12:10 | NUR ---
RN-NOTES PATIENT REFUSED 3 UNITS OF R INSULIN COVERAGE,NO S/SX OF HYPERGLYCEMIA NOTED.
--- NOTE | 2022-09-24 13:25 | NUR ---
RN-DISCHARGE NOTES PATIENT HAD A DISCHARGE ORDER FROM DR. TOWNSEND, DR. MOCK MEDICALLY DISCHARGE PATIENT. REPORT WAS GIVEN TO SLADE Rodriges (AMALGAMATOR). PATIENT DID NOT VERBALIZE SI/HI,DENIES VISUAL/AUDITORY HALLUCINATIONS AT THE TIME SHE LEFT THE UNIT. PATIENT LEFT THE UNIT IN STABLE CONDITION A/O X2 NO ACUTE DISTRESS NOTED. ALL BELONGINGS WAS GIVEN BACK TO THE PATIENT.ELECTRONICS MECHANIC APPRENTICE BY AMBULANCE WITH TWO STAFF ASSIST. PATIENT REFUSED FULL BODY ASSESSMENT PRIOR TO DISCHARGE.
== END 2022-09-24 14:30 | DRG 885 ==
LOC: ER 12:20 → GPS 19:03
PROVIDERS: ADMIT Psychiatry & Neurology Psychosomatic Medicine; ATTEND Internal Medicine
DX: F25.0 Schizoaffective disorder, bipolar type (principal); N17.9 Acute kidney failure, unspecified; E87.1 Hypo-osmolality and hyponatremia; E87.6 Hypokalemia; I48.0 Paroxysmal atrial fibrillation; K21.9 Gastro-esophageal reflux disease without esophagitis; I10 Essential (primary) hypertension; E11.9 Type 2 diabetes mellitus without complications; M62.81 Muscle weakness (generalized); M19.90 Unspecified osteoarthritis, unspecified site; Z20.822 Contact with and (suspected) exposure to COVID-19; Z91.14 Patient's other noncompliance with medication regimen; F19.90 Other psychoactive substance use, unspecified, uncomplicated; R27.8 Other lack of coordination
CPT/HCPCS: 36415; 76770-TC; 80048-TC; 80061-TC; 80076-TC; 81001; 82962-TC; 85025-TC; 87081-TC; 97116-TC; 97530-TC; C9803; G0480; J1815

== ENCOUNTER 2023-01-05 19:55 | Inpatient (IN) | payer MEDICARE, OTHER ==
[~2023-01-05] VITALS: Ht 175.3 cm; Wt 86.2 kg
[~2023-01-05 19:55] MED LIST: ACET325T53 PO; AMLO10TA4 PO; LISI-768 PO; METO50TA16 PO; OMEP20CA15 PO; TRAM50TA2 PO
[2023-01-05 21:09] LABS: BASOPHILS % (AUTO) 0.5 % (0.0-2.0); EOSINOPHILS % (AUTO) 2.4 % (0.0-6.0); HEMATOCRIT 41 % (39-51); LYMPHOCYTES # (AUTO) 1.6 K/uL (0.8-4.8); LYMPHOCYTES % (AUTO) 17.1 % (20.0-44.0); MEAN CORPUSCULAR HGB CONC 34 g/dl (31.0-36.0); MEAN CORPUSCULAR VOLUME 90 fL (80-96); MONOCYTES # (AUTO) 0.9 K/uL (0.1-1.30); NEUTROPHILS # (AUTO) 6.5 K/uL (1.8-8.9); PLATELET COUNT (AUTO) 235 K/uL (150-450); RED BLOOD CELL COUNT(AUTO) 4.59 MIL/uL (4.5-6.0); WHITE BLOOD COUNT (AUTO) 9.2 K/uL (4.3-11.0)
[2023-01-05 21:32] LABS: ALANINE AMINOTRANSFERASE 23 U/L (12-78); ALBUMIN 3.5 g/dL (3.4-5.0); ALCOHOL, BLOOD < 3 mg/dL (0-0); ALKALINE PHOSPHATASE 95 U/L (46-116); ASPARTATE AMINOTRANSFERASE 17 U/L (15-37); BILIRUBIN,DIRECT 0.1 mg/dL (0.0-0.2); BILIRUBIN,TOTAL 0.4 mg/dL (0.2-1.0); CALCIUM, SERUM 9.4 mg/dL (8.5-10.1); CARBON DIOXIDE 27 mmol/L (21-32); CHLORIDE 103 mmol/L (98-107); CREATININE 1.4 mg/dL (0.6-1.3); GLUCOSE 152 mg/dL (74-106); POTASSIUM 3.8 mmol/L (3.5-5.1); SODIUM SERUM 137 mmol/L (136-145); TOTAL PROTEIN, SERUM 7.1 g/dL (6.4-8.2); UREA NITROGEN, BLOOD 24 mg/dL (7-18)
[2023-01-05 21:35] LABS: ACETAMINOPHEN < 10 ug/ml (10-30)
--- NOTE | 2023-01-05 21:36 | NUR ---
RESHMA PEREZ [facility] FOR PSYCH EVAL PER STAFF "VERBALLY AGGRESSIVE TOWARD STAFF". PT CHANGED INTO GOWN AND PLACED ON MONITOR. SAFETY MEASURES IN PLACE SITTER AT BEDSIDE.
[2023-01-05 22:43] LABS: BILIRUBIN,URINE NEGATIVE (NEGATIVE); COLOR,URINE YELLOW (YELLOW); LEUKOCYTE ESTERASE ,URINE NEGATIVE (NEGATIVE); NITRITE, URINE NEGATIVE (NEGATIVE); PROTEIN,URINE 2+ mg/dl (NEGATIVE); UGLUCOSE NEGATIVE (NEGATIVE); UROBILINOGEN,URINE 0.2 EU/dL (0.2)
[2023-01-05 22:44] LABS: BACTERIA,URINE None seen /HPF (None Seen); RBC,URINE 0-2 /HPF (0-2); WBC,URINE NONE SEEN /HPF (0-3)
[2023-01-05 22:45] LABS: SQUAMOUS EPITHELIAL CELL,UR Few /HPF (None Seen)
--- NOTE | 2023-01-05 23:00 | NUR ---
CRISIS TEAM CALLED AND ON THE WAY
--- NOTE | 2023-01-06 00:01 | NUR ---
REPORT GIVEN TO DEEDEE MARTINEZ FOR JEREMY
[2023-01-06] MEDS ORDERED: MAGNESIUM HYDROXIDE 30 ML UDC PO PRN (01:30)
[2023-01-06] MEDS ORDERED: BLOOD SUGAR DIAGNOSTIC 1 EACH STRIP IN ONE (01:30)
[2023-01-06] MEDS ORDERED: MAG HYDROX/AL HYDROX/SIMETH 30 ML UDC PO PRN (01:30)
[2023-01-06] MEDS ORDERED: TEMAZEPAM 7.5 MG CAPSULE PO PRN (01:30)
[2023-01-06] MEDS ORDERED: PREG75CA PO (01:37)
[2023-01-06] MEDS ORDERED: LATA2.5D15 EACHEYE (01:37)
[2023-01-06] MEDS ORDERED: PANT40TA49 PO (01:37)
[2023-01-06] MEDS ORDERED: BENZ1TAB7 PO (01:37)
[2023-01-06] MEDS ORDERED: DEXTROSE 50%-WATER 50 ML DISP.SYRIN IV PRN (02:00)
--- NOTE | 2023-01-06 02:30 | NUR ---
RN note: Patient refused MRSA swab ,offered x3 .
--- NOTE | 2023-01-06 02:31 | NUR ---
RN note: Admitted this 67 y/o male who was medically cleared at [facility] ED and was placed on 5150 for GD.Per hold,patient is verbally abusive towards staff.His judgement is impaired and he has poor insight and poor impulse control.Patient is unable to provide for his food,alf,clothing due to his behavior and mental illness. Upon face to face assessment,patient appears to be alert ,oriented x 2-3 ,ambulatory,disheveled,unkempt,uncooperative and easily irritable.Patient noted with episodes of forgetful .Body check/skin assessment done and noted skin rashes all over his body.He received elimite cream last 01/02/23.MD was informed and gave an order to let the patient sleep tonight and will reassess in am.Patient has a medical hx of DM ,Afib and hyperlipidemia,Patient was contraband and belongings placed in the safe.Patient was oriented to the unit. Reviewed Patient Rights and verbalized understanding by nodding his head.MD 's notified of his admission.Will continue to monitor q15 min rounds for safety.
--- NOTE | 2023-01-06 02:45 | NUR ---
RN NOTE: RICHIE Maguire notified to reconcile meds.
[2023-01-06] MEDS: ACETAMINOPHEN 325 MG TABLET PO PRN (03:06)
--- NOTE | 2023-01-06 03:10 | NUR ---
RN note: Patient refused V/S to be taken upon admission.
[2023-01-06] MEDS: BLOOD SUGAR DIAGNOSTIC 1 EACH STRIP IN SCH ×4 (07:56→22:10)
[2023-01-06 08:00] VITALS: BP 157/91
--- NOTE | 2023-01-06 08:24 | NUR ---
WOUND CARE CONSULT: PT ADMITTED WITH GENERALIZED BODY RASH/SKIN CONDITION. DEFER TO PMD FOR SKIN CONDITION. WILL SEE PRN.
--- NOTE | 2023-01-06 10:23 | NUR ---
Treatment Plan: Pt refused to sign treatment plan and was suspicious.
--- NOTE | 2023-01-06 10:23 | NUR ---
KIM Initial Discharge Note: Patient currently resides at [facility] located at [address] [place] [address]; ([phone]). KIM contacted the facility and spoke with Fanta ([phone]) who stated that they would want pt to go to a nursing facility [facility] before returning back and they have spoke with sister LEVAR. KIM will work with the MD, family, and treatment team to help coordinate appropriate discharge.
--- NOTE | 2023-01-06 10:24 | NUR ---
KIM Clinical Note: Pt placed on a 5150 hold for GD. Pt was aggressive at the facility. Patient currently resides at [facility] located at [address] [place] [address]; ([phone]). KIM contacted the facility and spoke with Fanta ([phone]) who stated that they would want pt to go to a nursing facility [facility] before returning back and they have spoke with sister LEVAR.
--- NOTE | 2023-01-06 10:33 | NUR ---
RN-NOTES RECEIVED T.O ORDER FROM DR. COKER OF [employer] TO[employer] APPLY ON January. NOTED AND CARRIED OUT.
[2023-01-06] MEDS ORDERED: NA P133E RC (10:47)
[2023-01-06] MEDS ORDERED: TEMA15CA PO (10:47)
[2023-01-06] MEDS ORDERED: DOCU-141 PO (10:47)
[2023-01-06] MEDS ORDERED: ACET-2605 PO (10:47)
[2023-01-06] MEDS ORDERED: GLUC1KIT SQ (10:47)
[2023-01-06] MEDS ORDERED: MAGN400O6 PO (10:47)
[2023-01-06] MEDS ORDERED: INSU100V30 SQ (10:47)
[2023-01-06] MEDS ORDERED: RISP0.2515 PO ×2 (10:47)
[2023-01-06] MEDS ORDERED: LORA-259 PO (10:47)
[2023-01-06] MEDS ORDERED: INSULIN REGULAR, HUMAN 100 UNIT/ML 3 ML VIAL SQ PRN (11:00)
[2023-01-06] MEDS ORDERED: NA PHOS,M-B/NA PHOS,DI-BA 1 EA ENEMA RC PRN (11:00)
[2023-01-06] MEDS ORDERED: TRAMADOL HCL 50 MG TABLET PO PRN (11:00)
--- NOTE | 2023-01-06 11:25 | NUR ---
KIM Family Contact: KIM spoke with pt's sister Ronel ([phone]) and discussed pt's treatment plan and discharge plan. She stated that she is working with [facility] and are recommending [facility] and she would want pt to go there. She is the DPOA. SW placed the documents in pt's chart.
[2023-01-06] MEDS: METOPROLOL TARTRATE 50 MG TABLET PO SCH ×2 (11:54→17:49)
[2023-01-06] MEDS: LISINOPRIL (5MG) 5 MG TABLET PO SCH (11:54)
[2023-01-06] MEDS: AMLODIPINE BESYLATE 10 MG TABLET PO SCH (11:54)
[2023-01-06] MEDS: PREGABALIN 25 MG CAPSULE PO SCH ×2 (12:02→17:48)
[2023-01-06] MEDS: risperiDONE 1 MG TABLET PO SCH ×2 (12:02→21:46)
[2023-01-06] MEDS: ACETAMINOPHEN ES 500 MG TABLET PO SCH ×2 (12:02→17:51)
--- NOTE | 2023-01-06 13:34 | NUR ---
RN-CO: PATIENT REFUSED MRSA SWAB, ENCOURAGED 3X BUT STILL REFUSED.
[2023-01-06 13:57] LABS: CREATININE 1.2 mg/dL (0.6-1.3)
[2023-01-06] MEDS: clonazePAM 0.5 MG TABLET PO PRN (15:27)
[2023-01-06 16:00] VITALS: BP 140/76
[2023-01-06] MEDS: BENZTROPINE MESYLATE (1 MG) 1 MG TABLET PO SCH (17:49)
[2023-01-06] MEDS: DOCUSATE SODIUM 100 MG CAPSULE PO SCH (17:49)
[2023-01-06 20:30] VITALS: BP 139/91
[2023-01-06] MEDS: LATANOPROST EYE DROP 0.005% 2.5 ML BOTTLE EACHEYE SCH (21:47)
[2023-01-06] MEDS: INSULIN REGULAR, HUMAN 100 UNIT/ML 3 ML VIAL SQ PRN (22:23)
--- NOTE | 2023-01-06 22:30 | NUR ---
GPS RN NOTE ACCUCHECK WAS DONE AND PATIENT'S FBS WAS 138. 2 UNITS OF REGULAR INSULIN PER SLIDING SCALE WAS SUPPOSEDLY TO BE GIVEN BUT PATIENT REFUSED DESPITE EXPLANATION; WILL CONTINUE TO MONITOR
[2023-01-07] MEDS: BLOOD SUGAR DIAGNOSTIC 1 EACH STRIP IN SCH ×4 (07:55→21:23)
--- NOTE | 2023-01-07 07:55 | NUR ---
RN- NOTES PATIENT REFUSED INSULIN COVERAGE FOR A BLOOD GLUCOSE LEVEL OF 144, EDUCATION AND ENCOURAGEMENT PROVIDED X3. PATIENT CONTINUES TO REFUSE.
[2023-01-07 08:00] VITALS: BP 156/74
[2023-01-07] MEDS: PANTOPRAZOLE 40 MG TABLET.DR PO SCH (08:05)
[2023-01-07] MEDS: clonazePAM 0.5 MG TABLET PO PRN (08:06)
--- NOTE | 2023-01-07 08:06 | NUR ---
RN-NOTES CLONAZEPAM GIVEN DUE TO INCREASED AGITATION AND AGGRESSION TOWARDS STAFF.
[2023-01-07] MEDS: risperiDONE 1 MG TABLET PO SCH ×4 (08:16→21:17)
[2023-01-07] MEDS: BENZTROPINE MESYLATE (1 MG) 1 MG TABLET PO SCH ×2 (08:17→17:00)
[2023-01-07] MEDS: PREGABALIN 25 MG CAPSULE PO SCH ×3 (08:17→16:59)
[2023-01-07] MEDS: DOCUSATE SODIUM 100 MG CAPSULE PO SCH ×2 (08:17→16:59)
[2023-01-07] MEDS: ACETAMINOPHEN ES 500 MG TABLET PO SCH ×3 (08:17→16:59)
[2023-01-07] MEDS: METOPROLOL TARTRATE 50 MG TABLET PO SCH ×2 (08:17→16:59)
[2023-01-07] MEDS: AMLODIPINE BESYLATE 10 MG TABLET PO SCH (08:18)
[2023-01-07] MEDS: LISINOPRIL (5MG) 5 MG TABLET PO SCH (08:18)
[2023-01-07] MEDS: MAGNESIUM HYDROXIDE 30 ML UDC PO SCH ×2 (08:20→08:29)
[2023-01-07 16:00] VITALS: BP 129/87
--- NOTE | 2023-01-07 19:21 | NUR ---
GPS CERAMIC COATER MACHINE NOTE: RCVD IN BED , APPEARS SLEEPING, EASY TO AROUSE, BREATHING EVEN AND UNLABORED, NO S/SX OF RES. DISTRESS OR DISCOMFORT AT THIS TIME.
[2023-01-07 20:16] VITALS: BP 129/74
[2023-01-07] MEDS: LATANOPROST EYE DROP 0.005% 2.5 ML BOTTLE EACHEYE SCH (21:17)
[2023-01-07] MEDS: INSULIN REGULAR, HUMAN 100 UNIT/ML 3 ML VIAL SQ PRN (21:23)
--- NOTE | 2023-01-07 22:33 | NUR ---
GPS TORQUE TESTER NOTE PT MED COMPLIANT, ACCU- CHECK DONE , BS 121, NO COVERAGE, PT WENT BACK TO SLEEP AFTER TAKING HIS MEDICINE. CONTINUE TO MONITOR BEHAVIOR AND SAFETY Q 15 MINS.
--- NOTE | 2023-01-07 23:02 | NUR ---
GPS ANCIENT ART CURATOR NOTE PT NOW NOTED AWAKE,WITH EPISODE OF RANDOMLY YELLING AND TALKING TO HIMSELF. DENIES ANY PAIN OR DISCOMFORT, WILL CONTINUE TO MONITOR Q 15 MINS PT'S BEHAVIOR AND SAFETY.
--- NOTE | 2023-01-08 00:21 | NUR ---
GPS INTEGRATION SOLUTION ARCHITECT NOTE: PT NOTED BACK TO SLEEP, EASY TO AROUSE, BREATHING EVEN AND UNLABORED. SAFETY MEASURES NOTED, WILL CONT TO MONITOR Q 15 MINS FOR BEHAVIOR AND SAFETY.
--- NOTE | 2023-01-08 03:14 | NUR ---
GPS IMPORT CUSTOMER SERVICE MANAGER NOTE PT SLEEPING, EASY TO AROUSE, NO S/SX OF RESP.DISTRESS. CONT TO MONITOR Q15 MINS - BEHAVIOR AND SAFETY.
--- NOTE | 2023-01-08 05:05 | NUR ---
GPS EMERY WHEEL MOLDER NOTE PT AWAKE, AND ASKED FOR PITCHER OF ICED COLD WATER, ICED COLD WATER GIVEN TO PT. PT NOTED AGAIN WITH EPISODE OF RANDOMLY YELLING AND TALKING TO HIMSELF, BUT COOPERATIVE, AND NON- COMBATIVE. CONTINUE TO MONITOR BEHAVIOR AND SAFETY & ANTICIPATE NEEDS.
[2023-01-08] MEDS: BLOOD SUGAR DIAGNOSTIC 1 EACH STRIP IN SCH ×4 (07:30→21:21)
[2023-01-08 08:00] VITALS: BP 138/90
[2023-01-08] MEDS: PREGABALIN 25 MG CAPSULE PO SCH ×3 (08:30→17:29)
[2023-01-08] MEDS: PANTOPRAZOLE 40 MG TABLET.DR PO SCH (08:31)
[2023-01-08] MEDS: ACETAMINOPHEN ES 500 MG TABLET PO SCH ×3 (08:31→17:29)
[2023-01-08] MEDS: BENZTROPINE MESYLATE (1 MG) 1 MG TABLET PO SCH ×2 (08:31→17:29)
[2023-01-08] MEDS: risperiDONE 1 MG TABLET PO SCH ×4 (08:31→21:13)
[2023-01-08] MEDS: DOCUSATE SODIUM 100 MG CAPSULE PO SCH ×2 (08:32→17:29)
[2023-01-08] MEDS: METOPROLOL TARTRATE 50 MG TABLET PO SCH ×2 (08:32→17:30)
[2023-01-08] MEDS: AMLODIPINE BESYLATE 10 MG TABLET PO SCH (08:32)
[2023-01-08] MEDS: LISINOPRIL (5MG) 5 MG TABLET PO SCH (08:32)
[2023-01-08] MEDS: MAGNESIUM HYDROXIDE 30 ML UDC PO SCH (09:00)
[2023-01-08] MEDS: clonazePAM 0.5 MG TABLET PO PRN (09:21)
[2023-01-08] MEDS ORDERED: TEMAZEPAM 15 MG CAPSULE PO PRN (13:30)
[2023-01-08 16:00] VITALS: BP 127/75
--- NOTE | 2023-01-08 19:19 | NUR ---
RN NOTES: PATIENT RESTING HIS ROOM PATIENT AWAKE IN BED, BREATHING EVEN AND UNLABORED WITH NO S/S OF DISTRESS. PATIENT IS GUARDED, ANXIOUS, MUMBLING TO HIMSELF, SCREAMING OUT AT RANDOM TIME, PARANOID HYPERVERBAL, NEEDY . PATIENT IS MEDICATION COMPLIANT, NEEDS FREQUENTLY REDIRECTIONS , PATIENT CONTINUES TO REFUSE. DENIES SI/HI AT THIS TIME. WILL CONTINUE TO MONITOR Q 15 MINUTES FOR SAFETY AND BEHAVIOR.
[2023-01-08 20:00] VITALS: BP 128/68
[2023-01-08] MEDS: LATANOPROST EYE DROP 0.005% 2.5 ML BOTTLE EACHEYE SCH (21:13)
--- NOTE | 2023-01-08 21:22 | NUR ---
RN NOTES: PATIENT REFUSED ACCU CHECK, ENCOURAGED 3X BUT STILL STRONGLY REFUSED, EXPLINED RISKS AND BENEFITS, WILL CONTINUITY WITH CARE.
--- NOTE | 2023-01-08 22:01 | NUR ---
RN NOTES: INSOMNIA PT. C/O OF UNABLE TO SLEEP , PRN RESTORIL 15 MG PO GIVEN PER PT. REQUEST, WILL CONTINUE TO MONITOR.
--- NOTE | 2023-01-09 05:38 | NUR ---
RN NOTES: PATIENT RESTING IN ROOM AND 9 HOURS OF SLEEP NO S/SX OF ACUTE DISTRESS NOTED. PATIENT EASILY AGITATED,PARANOID, MED COMPLIANT BUT REFUSED ACCU CHECK, COOPERATIVE TO CARE.ALL NEEDS ATTENDED AND ANTICIPATED, NEEDS FREQUENTLY REDIRECTIONS, DENIES SI/HI/AVH AT THIS TIME. SAFETY PRECAUTIONS MAINTAINED. ENCOURAGED TO VERBALIZED ANY FEELING OR CONCERN ,WILL CONTINUE TO MONITOR Q15MIN ROUNDS FOR SAFETY AND BEHAVIOR.
[2023-01-09 07:16] LABS: CALCIUM, SERUM 8.9 mg/dL (8.5-10.1); CREATININE 1.2 mg/dL (0.6-1.3); POTASSIUM 4.1 mmol/L (3.5-5.1)
[2023-01-09] MEDS: BLOOD SUGAR DIAGNOSTIC 1 EACH STRIP IN SCH ×4 (07:30→21:04)
[2023-01-09 08:00] VITALS: BP 143/78
[2023-01-09] MEDS: BENZTROPINE MESYLATE (1 MG) 1 MG TABLET PO SCH ×2 (08:17→16:47)
[2023-01-09] MEDS: PANTOPRAZOLE 40 MG TABLET.DR PO SCH (08:17)
[2023-01-09] MEDS: risperiDONE 1 MG TABLET PO SCH ×4 (08:17→21:03)
[2023-01-09] MEDS: PREGABALIN 25 MG CAPSULE PO SCH ×3 (08:17→16:47)
[2023-01-09] MEDS: DOCUSATE SODIUM 100 MG CAPSULE PO SCH ×2 (08:17→16:48)
[2023-01-09] MEDS: LISINOPRIL (5MG) 5 MG TABLET PO SCH (08:18)
[2023-01-09] MEDS: METOPROLOL TARTRATE 50 MG TABLET PO SCH ×2 (08:18→16:50)
[2023-01-09] MEDS: AMLODIPINE BESYLATE 10 MG TABLET PO SCH (08:18)
[2023-01-09] MEDS: ACETAMINOPHEN ES 500 MG TABLET PO SCH ×3 (08:20→16:48)
[2023-01-09] MEDS: MAGNESIUM HYDROXIDE 30 ML UDC PO SCH (08:24)
--- NOTE | 2023-01-09 11:23 | NUR ---
RN-NOTES DR. ELLSWORTH NOTIFIED REGARDING PATIENT'S ACCU CHECK REFUSAL.
[2023-01-09] MEDS: ACETAMINOPHEN 325 MG TABLET PO PRN (15:40)
--- NOTE | 2023-01-09 15:41 | NUR ---
RN-NOTES PATIENT REQUESTING TYLENOL FOR HEAD ACHE. TYLENOL 650MG P.O GIVEN PRN ORDER.
[2023-01-09 16:00] VITALS: BP 106/58
[2023-01-09] MEDS: clonazePAM 0.5 MG TABLET PO PRN (17:50)
--- NOTE | 2023-01-09 17:51 | NUR ---
RN-NOTES NOTED PATIENT WITH CONTINUOS SCREAMING AND YELLING IN HIS ROOM, REDIRECTED AND KLONOPIN 0.5MG P.O GIVEN PRN ORDER. WILL CONT. MONITORING FOR SAFETY AND BEHAVIOR.
--- NOTE | 2023-01-09 19:39 | NUR ---
RN NOTES: PATIENT AWAKE ALERT RESTING HIS ROOM IN BED, BREATHING EVEN AND UNLABORED WITH NO S/S OF DISTRESS. PATIENT IS GUARDED, ANXIOUS, MUMBLING TO HIMSELF, SCREAMING OUT AT RANDOM TIME, PARANOID HYPERVERBAL, NEEDY . PATIENT IS MEDICATION COMPLIANT, NEEDS FREQUENTLY REDIRECTIONS , PATIENT CONTINUES TO REFUSE. DENIES SI/HI AT THIS TIME. WILL CONTINUE TO MONITOR Q 15 MINUTES FOR SAFETY AND BEHAVIOR.
[2023-01-09] MEDS ORDERED: PERMETHRIN 5% CRM 60 GM TUBE TP ONE ×2 (20:00→23:04)
[2023-01-09 20:11] VITALS: BP 119/70
[2023-01-09] MEDS: LATANOPROST EYE DROP 0.005% 2.5 ML BOTTLE EACHEYE SCH (21:04)
--- NOTE | 2023-01-09 21:04 | NUR ---
RN NOTES: PATIENT REFUSED ACCU CHECK, ENCOURAGED 3X BUT STILL STRONGLY REFUSED, EXPLINED RISKS AND BENEFITS, WILL CONTINUITY WITH CARE.
[2023-01-09] MEDS: TEMAZEPAM 15 MG CAPSULE PO SCH (21:52)
--- NOTE | 2023-01-09 21:55 | NUR ---
RN NOTE: RESTORIL 15 MG PO GIVEN PER MD ORDERS, WILL CONTINUE TO MONITOR.
[2023-01-10] MEDS: clonazePAM 0.5 MG TABLET PO PRN ×3 (04:49→17:25)
--- NOTE | 2023-01-10 04:51 | NUR ---
RN NOTES: ANXIETY PT.C/O RESTLESS ANXIOUS PRN KLONOPIN 0.5 MG PO GIVEN WILL CONTINUE TO MONITOR.
[2023-01-10] MEDS: PANTOPRAZOLE 40 MG TABLET.DR PO SCH (07:56)
[2023-01-10] MEDS: BLOOD SUGAR DIAGNOSTIC 1 EACH STRIP IN SCH ×5 (07:56→21:03)
[2023-01-10 08:00] VITALS: BP 126/79
[2023-01-10] MEDS: MAGNESIUM HYDROXIDE 30 ML UDC PO SCH ×2 (08:16→08:46)
[2023-01-10] MEDS: risperiDONE 1 MG TABLET PO SCH ×4 (08:17→20:58)
[2023-01-10] MEDS: PREGABALIN 25 MG CAPSULE PO SCH ×3 (08:17→17:23)
[2023-01-10] MEDS: DOCUSATE SODIUM 100 MG CAPSULE PO SCH ×3 (08:17→17:00)
[2023-01-10] MEDS: METOPROLOL TARTRATE 50 MG TABLET PO SCH ×2 (08:18→17:24)
[2023-01-10] MEDS: AMLODIPINE BESYLATE 10 MG TABLET PO SCH (08:18)
[2023-01-10] MEDS: ACETAMINOPHEN ES 500 MG TABLET PO SCH ×3 (08:18→17:25)
[2023-01-10] MEDS: LISINOPRIL (5MG) 5 MG TABLET PO SCH (08:19)
[2023-01-10] MEDS: BENZTROPINE MESYLATE (1 MG) 1 MG TABLET PO SCH ×2 (08:19→17:25)
[2023-01-10] MEDS ORDERED: PERMETHRIN 5% CRM 60 GM TUBE TP ONE (09:00)
--- NOTE | 2023-01-10 11:09 | NUR ---
NURSE NOTE: PT HAVING YELLING OUTBURSTS. ANXIOUS AT THIS TIME, REQUESTED ATIVAN. ATIVAN PO ADMINISTERED ORDERED. WILL CONT TO MONITOR.
--- NOTE | 2023-01-10 12:00 | NUR ---
NURSE NOTE: PT CALM AT THIS TIME. ATIVAN EFFECTIVE AT THIS TIME. WILL CONT TO MONITOR.
[2023-01-10 16:00] VITALS: BP 128/78
--- NOTE | 2023-01-10 17:25 | NUR ---
NURSE NOTE: PT ANXIOUS AT THIS TIME, REQUESTED ATIVAN. ATIVAN PO ADMINISTERED ORDERED. WILL CONT TO MONITOR.
--- NOTE | 2023-01-10 18:25 | NUR ---
NURSE NOTE: PT CALM AT THIS TIME. ATIVAN EFFECTIVE AT THIS TIME. WILL CONT TO MONITOR.
--- NOTE | 2023-01-10 19:17 | NUR ---
NURSE NOTE: PT REFUSED ACCU CHECK THROUGHOUT SHIFT.
[2023-01-10 20:20] VITALS: BP 128/78
[2023-01-10] MEDS: TEMAZEPAM 15 MG CAPSULE PO SCH (20:58)
[2023-01-10] MEDS: LATANOPROST EYE DROP 0.005% 2.5 ML BOTTLE EACHEYE SCH (20:59)
--- NOTE | 2023-01-10 22:00 | NUR ---
LITERARY WRITER NOTES ROUTINE MEDS GIVEN BUT PATIENT REFUSED TO TAKE PHOTO OF HIS SKIN . HE TOOK HIS SHOWER ALSO TO WASHED OUT THE CREAM THAT APPLIED EARLIER. ROUTINE MEDS GIVEN ORDERED. SNACKS ALSO SERVED. HE REFUSED THE BLOOD SUGAR CHECKED WELL EVEN I EXPLAINED TO HIM WHY HE NEEDS IT.
--- NOTE | 2023-01-11 06:21 | NUR ---
business teacher notes Pt slept well after he took shower and drinkk all his due meds last night.
[2023-01-11 08:00] VITALS: BP 135/84
[2023-01-11] MEDS: BLOOD SUGAR DIAGNOSTIC 1 EACH STRIP IN SCH ×4 (08:10→21:08)
[2023-01-11] MEDS: risperiDONE 1 MG TABLET PO SCH ×4 (08:11→21:07)
[2023-01-11] MEDS: PREGABALIN 25 MG CAPSULE PO SCH ×3 (08:11→17:22)
[2023-01-11] MEDS: BENZTROPINE MESYLATE (1 MG) 1 MG TABLET PO SCH ×2 (08:11→17:22)
[2023-01-11] MEDS: AMLODIPINE BESYLATE 10 MG TABLET PO SCH (08:11)
[2023-01-11] MEDS: METOPROLOL TARTRATE 50 MG TABLET PO SCH ×2 (08:12→17:24)
[2023-01-11] MEDS: LISINOPRIL (5MG) 5 MG TABLET PO SCH (08:12)
[2023-01-11] MEDS: ACETAMINOPHEN ES 500 MG TABLET PO SCH ×3 (08:12→17:24)
[2023-01-11] MEDS: DOCUSATE SODIUM 100 MG CAPSULE PO SCH ×2 (08:13→17:00)
[2023-01-11] MEDS: MAGNESIUM HYDROXIDE 30 ML UDC PO SCH (08:13)
[2023-01-11] MEDS: PANTOPRAZOLE 40 MG TABLET.DR PO SCH (08:14)
--- NOTE | 2023-01-11 10:47 | NUR ---
KIM Family Contact: KIM spoke with pt's sister Ronel ([phone]) and notified that [facility] SN[facility] accepted and she was agreeable of this.
[2023-01-11] MEDS: clonazePAM 0.5 MG TABLET PO PRN (12:38)
--- NOTE | 2023-01-11 12:38 | NUR ---
NURSE NOTE: PT ANXIOUS REQUESTED KLONOPIN. KLONOPIN ADMINISTERED ORDERED. PT MOSHE WELL, WILL CONT TO MONITOR.
--- NOTE | 2023-01-11 13:30 | NUR ---
NURSE NOTE: PT CALM AT THIS TIME. KLONOPIN EFFECTIVE. WILL CONT TO MONITOR.
[2023-01-11 16:00] VITALS: BP 128/72
[2023-01-11 19:40] VITALS: BP 155/96
[2023-01-11] MEDS: TEMAZEPAM 15 MG CAPSULE PO SCH (21:04)
[2023-01-11] MEDS: LATANOPROST EYE DROP 0.005% 2.5 ML BOTTLE EACHEYE SCH (21:08)
--- NOTE | 2023-01-11 22:00 | NUR ---
RN NOTE PATIENT REFUSED ACCU CHECK. EXPLAINED RISKS/BENEFITS. PATIENT CONTINUED TO REFUSE.
[2023-01-12] MEDS: ACETAMINOPHEN 325 MG TABLET PO PRN ×2 (02:32→08:01)
[2023-01-12] MEDS: BLOOD SUGAR DIAGNOSTIC 1 EACH STRIP IN SCH ×2 (07:30→12:00)
[2023-01-12] MEDS: PANTOPRAZOLE 40 MG TABLET.DR PO SCH (07:53)
[2023-01-12 08:00] VITALS: BP 147/83
[2023-01-12] MEDS: risperiDONE 1 MG TABLET PO SCH ×2 (08:00→12:45)
[2023-01-12] MEDS: DOCUSATE SODIUM 100 MG CAPSULE PO SCH (08:00)
[2023-01-12] MEDS: PREGABALIN 25 MG CAPSULE PO SCH ×2 (08:01→12:45)
[2023-01-12] MEDS: LISINOPRIL (5MG) 5 MG TABLET PO SCH (08:01)
[2023-01-12] MEDS: AMLODIPINE BESYLATE 10 MG TABLET PO SCH (08:02)
[2023-01-12] MEDS: BENZTROPINE MESYLATE (1 MG) 1 MG TABLET PO SCH (08:03)
--- NOTE | 2023-01-12 09:07 | NUR ---
SW Discharge Note: Pt will be discharged to [facility] located at [address] [place] [id number] . Please arrange ambulance at 1PM. Pts sister LEVAR Rodney ([phone]) is involved and aware. Upon discharge, the pt appears to be in a dysphoric mood and presented with a congruent affect. Pt appears to be alert and oriented x2 (place, self). Pt denies both suicidal and homicidal ideation as well as auditory and visual hallucinations. Pt appears to be ambulatory with a steady gait. Pt will be under the care of her psychiatrist, Dr. Avila, located at [address] [place] [address] . Pt will be under the care of principal technical architect, Dr. Spear, located at [address] [place] [address] . The choice of vendor form and multidisciplinary exit care form were done, printed, signed, and given to the patient.
--- NOTE | 2023-01-12 09:26 | NUR ---
RN-CO: DR RAMIREZ MEDICALLY CLEARED PATIENT FOR DISCHARGE, NOTED AND CARRIED OUT.
[2023-01-12 09:31] VITALS: BP 147/83
[2023-01-12] MEDS: ACETAMINOPHEN ES 500 MG TABLET PO SCH ×2 (09:31→12:46)
[2023-01-12] MEDS: METOPROLOL TARTRATE 50 MG TABLET PO SCH (09:31)
[2023-01-12] MEDS: MAGNESIUM HYDROXIDE 30 ML UDC PO SCH (09:31)
--- NOTE | 2023-01-12 10:03 | NUR ---
RN- NOTES PATIENT UNDERWENT SCABIES TREATMENT ON 01/02/23. SECOND TREATMENT ADMINISTERED ON 01/09/23 PER MD ORDERS. PATIENT HAS NO S/S OF SCABIES NOTED. ISOLATION DISCONTINUED ON 01/09/23 PER MD ORDERS.
--- NOTE | 2023-01-12 12:42 | NUR ---
RN-CO: DR TOWNSEND SEEN AND EXAMINED THE PT WITH ORDERS TO DISCONTINUE HOLD AND DISCHARGE PT TODAY TO SNF. DR RAMIREZ MEDICALLY CLEARED THE PATIENT FOR DISCHARGE.
--- NOTE | 2023-01-12 13:46 | NUR ---
gymnastic teacher ARRIVED AT 1315 TO ENERGY ASSISTANT PT FOR TRANSFER TO [facility] , THIS IS WHERE HE WAS TRANSFERRED TO [facility] FROM, B/P = 110/ 72, PULSE IS 78, OXYGEN ROOM AIR 93%, RR 20, NO C/O PAIN, NO S/S OF DISTRESS, NO SOB NOTED. PT ABLE TO AMBULATE ON OWN TO [facility], ALL VALUABLES ACCOUNTED FOR AND GIVEN TO PATIENT AND TAKEN WITH HIM AND THE gymnastic teacher ON THE GURNEY, SAFE TRANSFER OUT OF UNIT AND HOSPITAL TO AMBULANCE FOR TRANSFER, FAMILY AWARE OF TRANSFER, MD AWARE OF TRANSFER
--- NOTE | 2023-01-12 13:57 | NUR ---
PT LEFT BUILDING AT 1330, SAFE TRANSFER OUT OF [facility] TO AMBULANCE, PT EXCITED TO GO BACK TO SNF RE-DIRECTED AND COMPLIANT, COOPERATIVE AT THIS TIME.
== END 2023-01-12 13:30 | DRG 885 ==
LOC: ER 19:57 → GPS 23:52
PROVIDERS: ADMIT Psychiatry & Neurology Psychosomatic Medicine
DX: F25.0 Schizoaffective disorder, bipolar type (principal); N18.9 Chronic kidney disease, unspecified; N17.9 Acute kidney failure, unspecified; E78.5 Hyperlipidemia, unspecified; E11.9 Type 2 diabetes mellitus without complications; I10 Essential (primary) hypertension; I12.9 Hypertensive chronic kidney disease with stage 1 through stage 4 chronic kidney disease, or unspecified chronic kidney disease; E11.22 Type 2 diabetes mellitus with diabetic chronic kidney disease; I48.91 Unspecified atrial fibrillation; Z91.14 Patient's other noncompliance with medication regimen; F19.90 Other psychoactive substance use, unspecified, uncomplicated; E66.9 Obesity, unspecified; Z68.28 Body mass index [BMI] 28.0-28.9, adult; Z20.822 Contact with and (suspected) exposure to COVID-19; B86 Scabies
CPT/HCPCS: 36415; 80048-TC; 80061-TC; 80076-TC; 81001; 82565-TC; 82962-TC; 85025-TC; C9803; G0480; J1815

== ENCOUNTER 2024-04-15 11:37 | Inpatient (IN) | payer MEDICARE, OTHER ==
[~2024-04-15] VITALS: Ht 185.4 cm; Wt 98.0 kg
[~2024-04-15 11:37] MED LIST changes: +ACET1TAB23 PO; -ACET325T53 PO; -AMLO10TA4 PO; +APIX5TAB PO; +ARIP10TA9 PO; +IBUP-1955 PO; -LISI-768 PO; +LORA-258 PO; +MECL-159 PO; +METH-647 PO; +METO25TA4 PO; -METO50TA16 PO; -OMEP20CA15 PO; +SERT50TA PO; -TRAM50TA2 PO
[2024-04-15 12:23] LABS: BASOPHILS # (AUTO) 0.3 K/uL (0.0-0.2); CALCIUM, SERUM 8.8 mg/dL (8.5-10.1); CARBON DIOXIDE 23 mmol/L (21-32); CHLORIDE 92 mmol/L (98-107); CREATININE 1.6 mg/dL (0.6-1.3); GLUCOSE 156 mg/dL (74-106); HEMATOCRIT 41 % (39-51); HEMOGLOBIN 13.3 g/dL (13.5-17.5); LYMPHOCYTES # (AUTO) 0.8 K/uL (0.8-4.8); LYMPHOCYTES % (AUTO) 3.2 % (20.0-44.0); MEAN CORPUSCULAR HEMOGLOBIN 31 PG (26.0-33.0); MEAN CORPUSCULAR HGB CONC 33 g/dl (31.0-36.0); MEAN CORPUSCULAR VOLUME 94 fL (80-96); MONOCYTES # (AUTO) 1.4 K/uL (0.1-1.30); MONOCYTES % (AUTO) 5.5 % (2.0-12.0); NEUTROPHILS % (AUTO) 90.3 % (43.0-81.0); PLATELET COUNT (AUTO) 227 K/uL (150-450); POTASSIUM 5.8 mmol/L (3.5-5.1); RED BLOOD CELL COUNT(AUTO) 4.32 MIL/uL (4.5-6.0); RED CELL DISTRIBUTION WIDTH 16.8 % (11.5-15.0); SODIUM SERUM 125 mmol/L (136-145); UREA NITROGEN, BLOOD 34 mg/dL (7-18); WHITE BLOOD COUNT (AUTO) 25.5 K/uL (4.3-11.0)
[2024-04-15 12:35] LABS: NT-PRO BNP 17186 pg/mL (0-125)
[2024-04-15 13:00] VITALS: O2SAT 99
[2024-04-15] MEDS: FUROSEMIDE 20 MG/2 ML VIAL IV ONE (13:30)
[2024-04-15] MEDS: CEFEPIME 1 GM in IV D5W 50 ML IV ONE (13:39)
[2024-04-15] MEDS ORDERED: FUROSEMIDE 20 MG/2 ML VIAL ONE (13:41)
[2024-04-15] MEDS: VANCOMYCIN 1 GM in IV D5W 250 ML IV ONE (13:56)
[2024-04-15 14:18] LABS: LACTIC ACID 2.2 mmol/L (0.4-2.0)
[2024-04-15 14:56] VITALS: O2SAT 96
[2024-04-15] MEDS ORDERED: MAGNESIUM HYDROXIDE 30 ML UDC PO PRN (15:00)
[2024-04-15] MEDS ORDERED: Z GUARD REMEDY 4 OZ OINT TP PRN (15:00)
[2024-04-15] MEDS ORDERED: ONDANSETRON HCL/PF 4 MG/2 ML VIAL IVP PRN (15:00)
[2024-04-15] MEDS ORDERED: METHOCARBAMOL (500MG) 500 MG TABLET PO PRN (15:00)
[2024-04-15] MEDS ORDERED: ZOLPIDEM TARTRATE 5 MG TABLET PO PRN (15:00)
[2024-04-15] MEDS ORDERED: LIDOCAINE 1% INJ 50 ML MDV IJ ONE (15:04)
[2024-04-15] MEDS ORDERED: FUROSEMIDE 40 MG/4 ML VIAL ONE (16:56)
[2024-04-15] MEDS: FUROSEMIDE 40 MG/4 ML VIAL IV ONE (17:00)
[2024-04-15] MEDS ORDERED: APIXABAN 5 MG TABLET PO SCH (17:00)
[2024-04-15 18:16] LABS: APPEARANCE,URINE CLEAR (CLEAR); BILIRUBIN,URINE NEGATIVE (NEGATIVE); BLOOD, URINE NEGATIVE Ery/uL (NEGATIVE); COLOR,URINE YELLOW (YELLOW); KETONES,URINE NEGATIVE (NEGATIVE); LEUKOCYTE ESTERASE ,URINE NEGATIVE (NEGATIVE); NITRITE, URINE NEGATIVE (NEGATIVE); PH,URINE 5.5 (5.0-8.0); PROTEIN,URINE 1+ mg/dl (NEGATIVE); UGLUCOSE NEGATIVE (NEGATIVE); UROBILINOGEN,URINE 0.2 EU/dL (0.2)
[2024-04-15 18:42] VITALS: O2SAT 98
[2024-04-15 19:33] LABS: ADD URINE CULTURE NO; BACTERIA,URINE None seen /HPF (None Seen); MUCUS,URINE Few /LPF (None Seen); RBC,URINE 0-2 /HPF (0-2); SQUAMOUS EPITHELIAL CELL,UR 0-2 /HPF (None Seen); WBC,URINE 0-2 /HPF (0-3)
[2024-04-15 20:00] VITALS: BP 131/71; TEMP 97.8; O2SAT 98
[2024-04-15] MEDS: SERTRALINE HCL 50 MG TABLET PO SCH (20:27)
[2024-04-15] MEDS: ENOXAPARIN SODIUM 40 MG/0.4 ML DISP.SYRIN SQ SCH (20:45)
[2024-04-15] MEDS: MAG HYDROX/AL HYDROX/SIMETH 30 ML UDC PO PRN (23:58)
[2024-04-16] VITALS (7 sets, daily range): BP systolic 146–169; BP diastolic 87–124; TEMP 97.5–98.5; O2SAT 97–100
[2024-04-16] MEDS: ACETAMINOPHEN 325 MG TABLET PO PRN (05:35)
[2024-04-16 06:47] LABS: BASOPHILS % (AUTO) 0.1 % (0.0-2.0); HEMATOCRIT 42 % (39-51); HEMOGLOBIN 14.1 g/dL (13.5-17.5); LYMPHOCYTES # (AUTO) 0.8 K/uL (0.8-4.8); LYMPHOCYTES % (AUTO) 2.8 % (20.0-44.0); MEAN CORPUSCULAR HEMOGLOBIN 31 PG (26.0-33.0); MEAN CORPUSCULAR HGB CONC 33 g/dl (31.0-36.0); MEAN CORPUSCULAR VOLUME 93 fL (80-96); MONOCYTES # (AUTO) 1.4 K/uL (0.1-1.30); MONOCYTES % (AUTO) 4.9 % (2.0-12.0); NEUTROPHILS # (AUTO) 26.6 K/uL (1.8-8.9); NEUTROPHILS % (AUTO) 92.2 % (43.0-81.0); PLATELET COUNT (AUTO) 235 K/uL (150-450); RED BLOOD CELL COUNT(AUTO) 4.56 MIL/uL (4.5-6.0); RED CELL DISTRIBUTION WIDTH 16.2 % (11.5-15.0); WHITE BLOOD COUNT (AUTO) 28.8 K/uL (4.3-11.0)
[2024-04-16 07:17] LABS: CALCIUM, SERUM 8.4 mg/dL (8.5-10.1); CREATININE 1.3 mg/dL (0.6-1.3); MAGNESIUM 1.9 mg/dL (1.8-2.4); PHOSPHORUS 3.8 mg/dL (2.5-4.9); POTASSIUM 3.9 mmol/L (3.5-5.1)
[2024-04-16] MEDS: PANTOPRAZOLE 40 MG TABLET.DR PO SCH (07:30)
[2024-04-16] MEDS: ARIPIPRAZOLE 5 MG TABLET PO SCH (09:00)
[2024-04-16] MEDS: METOPROLOL SUCCINATE 25 MG TAB.SR.24H PO SCH (09:00)
[2024-04-16] MEDS: LORAZEPAM 0.5 MG TABLET PO PRN (09:13)
[2024-04-16] MEDS: FUROSEMIDE 20 MG/2 ML VIAL IV SCH (10:46)
[2024-04-16] MEDS: CLONIDINE HCL 0.1MG/24H PTWK 1 EA PATCH TD SCH (17:01)
[2024-04-17] VITALS: BP 132/92; TEMP 97.7; O2SAT 98
[2024-04-17 04:00] VITALS: BP 147/98; TEMP 97.9; O2SAT 100
[2024-04-17 07:18] LABS: BASOPHILS % (AUTO) 0.2 % (0.0-2.0); HEMATOCRIT 40 % (39-51); HEMOGLOBIN 13.4 g/dL (13.5-17.5); LYMPHOCYTES # (AUTO) 0.7 K/uL (0.8-4.8); LYMPHOCYTES % (AUTO) 3.7 % (20.0-44.0); MEAN CORPUSCULAR HEMOGLOBIN 31 PG (26.0-33.0); MEAN CORPUSCULAR HGB CONC 33 g/dl (31.0-36.0); MEAN CORPUSCULAR VOLUME 93 fL (80-96); MONOCYTES # (AUTO) 1.5 K/uL (0.1-1.30); MONOCYTES % (AUTO) 7.8 % (2.0-12.0); NEUTROPHILS # (AUTO) 16.6 K/uL (1.8-8.9); NEUTROPHILS % (AUTO) 88.3 % (43.0-81.0); PLATELET COUNT (AUTO) 206 K/uL (150-450); RED BLOOD CELL COUNT(AUTO) 4.31 MIL/uL (4.5-6.0); RED CELL DISTRIBUTION WIDTH 16.2 % (11.5-15.0); WHITE BLOOD COUNT (AUTO) 18.8 K/uL (4.3-11.0)
[2024-04-17 07:32] LABS: ALBUMIN 2.1 g/dL (3.4-5.0); BILIRUBIN,TOTAL 1.5 mg/dL (0.2-1.0); CALCIUM, SERUM 8.9 mg/dL (8.5-10.1); CREATININE 1.1 mg/dL (0.6-1.3); MAGNESIUM 2.2 mg/dL (1.8-2.4); PHOSPHORUS 2.8 mg/dL (2.5-4.9); POTASSIUM 3.6 mmol/L (3.5-5.1); TOTAL PROTEIN, SERUM 5.4 g/dL (6.4-8.2)
[2024-04-17 07:33] LABS: CREATININE, URINE 33.3 MG/DL (30.0-125.0); URINE TOTAL PROTEIN 81.5 mg/dL (0-11.9)
[2024-04-17 08:00] VITALS: BP 180/103; TEMP 97.7; O2SAT 97
[2024-04-17 09:27] LABS: APPEARANCE,URINE CLEAR (CLEAR); BILIRUBIN,URINE NEGATIVE (NEGATIVE); BLOOD, URINE TRACE-INTA Ery/uL (NEGATIVE); COLOR,URINE YELLOW (YELLOW); KETONES,URINE NEGATIVE (NEGATIVE); LEUKOCYTE ESTERASE ,URINE NEGATIVE (NEGATIVE); NITRITE, URINE NEGATIVE (NEGATIVE); PROTEIN,URINE 2+ mg/dl (NEGATIVE); UGLUCOSE NEGATIVE (NEGATIVE); UROBILINOGEN,URINE 0.2 EU/dL (0.2)
[2024-04-17] MEDS: FUROSEMIDE 40 MG/4 ML VIAL IV SCH (10:36)
[2024-04-17] MEDS: POTASSIUM CHLORIDE 20 MEQ TAB.PRT.SR PO SCH (10:36)
[2024-04-17 11:05] LABS: ADD URINE CULTURE NO; BACTERIA,URINE None seen /HPF (None Seen); RBC,URINE 0-2 /HPF (0-2); SQUAMOUS EPITHELIAL CELL,UR Rare /HPF (None Seen); WBC,URINE NONE SEEN /HPF (0-3)
[2024-04-17 13:10] LABS: EOSINOPHIL,URINE None Seen
[2024-04-17 20:00] VITALS: BP 125/109; TEMP 98; O2SAT 99
[2024-04-18] VITALS: BP 131/107; TEMP 98; O2SAT 100
[2024-04-18 04:00] VITALS: BP 157/80; TEMP 98; O2SAT 100
[2024-04-18 07:13] LABS: BASOPHILS % (AUTO) 0.3 % (0.0-2.0); EOSINOPHILS % (AUTO) 0.1 % (0.0-6.0); HEMATOCRIT 41 % (39-51); HEMOGLOBIN 13.7 g/dL (13.5-17.5); LYMPHOCYTES # (AUTO) 0.9 K/uL (0.8-4.8); LYMPHOCYTES % (AUTO) 5.4 % (20.0-44.0); MEAN CORPUSCULAR HEMOGLOBIN 32 PG (26.0-33.0); MEAN CORPUSCULAR HGB CONC 33 g/dl (31.0-36.0); MEAN CORPUSCULAR VOLUME 94 fL (80-96); MONOCYTES # (AUTO) 1.3 K/uL (0.1-1.30); MONOCYTES % (AUTO) 7.8 % (2.0-12.0); NEUTROPHILS # (AUTO) 14.6 K/uL (1.8-8.9); NEUTROPHILS % (AUTO) 86.4 % (43.0-81.0); PLATELET COUNT (AUTO) 222 K/uL (150-450); RED BLOOD CELL COUNT(AUTO) 4.35 MIL/uL (4.5-6.0)
[2024-04-18 07:36] LABS: ALBUMIN 2.1 g/dL (3.4-5.0); BILIRUBIN,TOTAL 1.1 mg/dL (0.2-1.0); CALCIUM, SERUM 9.2 mg/dL (8.5-10.1); CREATININE 1.1 mg/dL (0.6-1.3); MAGNESIUM 2.3 mg/dL (1.8-2.4); PHOSPHORUS 2.3 mg/dL (2.5-4.9); POTASSIUM 3.4 mmol/L (3.5-5.1); TOTAL PROTEIN, SERUM 5.5 g/dL (6.4-8.2)
[2024-04-18 08:00] VITALS: BP 171/125; TEMP 98; O2SAT 100
[2024-04-18 08:07] LABS: PTH, INTACT 95 pg/mL (15-65)
[2024-04-18 08:40] LABS: ABG BASE EXCESS -3.8 mmol/L; ABG OXYGEN SATURATION 92.4 % (92.0-98.5); ABG PCO2 26.9 mmHg (35.0-45.0); ABG PH 7.453 (7.350-7.450); ABG PO2 63.8 mmHg (75.0-100.0); AaDO2 104.1 mmHg; COHb 1.2 % (0.5-1.5); MetHb 0.3 % (0.0-1.5); SITE, ABG Right Radial
[2024-04-18] MEDS ORDERED: KEY,NONCONTROL,TO KEEP IN PYXI 1 EA MC ONE (09:44)
[2024-04-18] MEDS: POTASSIUM CHLORIDE 20 MEQ TAB.PRT.SR PO SCH (12:36)
[2024-04-18 14:44] VITALS: BP 157/68
[2024-04-18 16:06] LABS: *SPE A/G RATIO 0.9 (0.7-1.7); *SPE ALBUMIN 2.4 g/dL (2.9-4.4); *SPE ALPHA-1-GLOBULIN 0.3 g/dL (0.0-0.4); *SPE ALPHA-2-GLOBULIN 0.8 g/dL (0.4-1.0); *SPE BETA GLOBULIN 0.9 g/dL (0.7-1.3); *SPE GLOBULIN, TOTAL 2.7 g/dL (2.2-3.9); *SPE M-SPIKE Not Observed g/dL (Not Observed); *SPE PROTEIN TOTAL 5.1 g/dL (6.0-8.5); *SPEGAMMA GLOBULIN 0.7 g/dL (0.4-1.8)
== END 2024-04-18 15:36 | DRG 291 ==
LOC: ER 11:39 → TELE1 15:51 → TELE-TD 17:54 → MEDSG1 04-18 09:47
PROC: 05HC33Z Insertion of Infusion Device into Left Basilic Vein, Percutaneous Approach (ICD-10-PCS; principal; 2024-04-16)
PROC: B54NZZA Ultrasonography of Left Upper Extremity Veins, Guidance (ICD-10-PCS; 2024-04-16)
DX: I13.0 Hypertensive heart and chronic kidney disease with heart failure and stage 1 through stage 4 chronic kidney disease, or unspecified chronic kidney disease (principal); I50.33 Acute on chronic diastolic (congestive) heart failure; J96.01 Acute respiratory failure with hypoxia; E87.1 Hypo-osmolality and hyponatremia; E87.20 Acidosis, unspecified; I48.20 Chronic atrial fibrillation, unspecified; N17.9 Acute kidney failure, unspecified; N18.30 Chronic kidney disease, stage 3 unspecified; E11.22 Type 2 diabetes mellitus with diabetic chronic kidney disease; D72.829 Elevated white blood cell count, unspecified; E78.5 Hyperlipidemia, unspecified; F20.9 Schizophrenia, unspecified; Z79.01 Long term (current) use of anticoagulants; I25.10 Atherosclerotic heart disease of native coronary artery without angina pectoris; E80.6 Other disorders of bilirubin metabolism; F32.A Depression, unspecified; F17.210 Nicotine dependence, cigarettes, uncomplicated; Z91.199 Patient's noncompliance with other medical treatment and regimen due to unspecified reason; F29 Unspecified psychosis not due to a substance or known physiological condition; F39 Unspecified mood [affective] disorder
CPT/HCPCS: 36415; 36600; 71045-TC; 80048-TC; 80053-TC; 81001; 82550-TC; 82570-TC; 82803-TC; 83605-TC; 83735-TC; 83880; 83970; 84100-TC; 84155; 84165; 84300-TC; 84484-TC; 85025-TC; 87040-TC; 87081-TC; 87086-TC; 93307-TC; 94799-TC; 97530-TC; A4223; G0378; J0692; J1650; J1940; J3370; J3490; J7060

== ENCOUNTER 2024-05-31 23:01 | Inpatient (IN) | payer MEDICARE, OTHER ==
[~2024-05-31] VITALS: Ht 182.9 cm; Wt 94.3 kg
--- NOTE | 2024-05-31 23:10 | NUR ---
[id number] from [facility] for SOB, 80%RA on scene. Afib RVR on EKG
--- NOTE | 2024-05-31 23:13 | NUR ---
Charissa sent to lab.
[2024-05-31 23:15] VITALS: O2SAT 98
[2024-05-31] MEDS ORDERED: IPRATROPIUM NEB FS 0.5 MG/2.5 ML AMPUL.NEB ONE (23:15)
[2024-05-31] MEDS ORDERED: ALBUTEROL FS 2.5 MG/3 ML VIAL.NEB ONE (23:15)
[2024-05-31] MEDS: ALBUTEROL FS 2.5 MG/3 ML VIAL.NEB CONTNEB ONE (23:22)
[2024-05-31] MEDS ORDERED: Magnesium 1GM/D5W 100ML PREMIX 100 ML IV ONE ×2 (23:22→23:27)
[2024-05-31] MEDS: IPRATROPIUM NEB FS 0.5 MG/2.5 ML AMPUL.NEB NEB ONE (23:22)
[2024-05-31] MEDS ORDERED: methylPREDNISolone SOD SUCC 125 MG/2ML VIAL ONE (23:22)
[2024-05-31 23:23] VITALS: O2SAT 98
[2024-05-31] MEDS: Magnesium 1GM/D5W 100ML PREMIX 200 ML IV ONE (23:35)
[2024-05-31] MEDS: methylPREDNISolone SOD SUCC 125 MG/2ML VIAL IV ONE (23:35)
[2024-05-31 23:45] VITALS: O2SAT 100
[2024-05-31 23:47] LABS: BASOPHILS # (AUTO) 0.1 K/uL (0.0-0.2); BASOPHILS % (AUTO) 0.4 % (0.0-2.0); EOSINOPHILS % (AUTO) 0.1 % (0.0-6.0); HEMATOCRIT 43 % (39-51); HEMOGLOBIN 13.5 g/dL (13.5-17.5); LYMPHOCYTES # (AUTO) 0.6 K/uL (0.8-4.8); LYMPHOCYTES % (AUTO) 3.7 % (20.0-44.0); MEAN CORPUSCULAR HEMOGLOBIN 30 PG (26.0-33.0); MEAN CORPUSCULAR HGB CONC 31 g/dl (31.0-36.0); MEAN CORPUSCULAR VOLUME 95 fL (80-96); MONOCYTES # (AUTO) 0.9 K/uL (0.1-1.30); NEUTROPHILS # (AUTO) 13.9 K/uL (1.8-8.9); NEUTROPHILS % (AUTO) 89.8 % (43.0-81.0); PLATELET COUNT (AUTO) 193 K/uL (150-450); RED BLOOD CELL COUNT(AUTO) 4.53 MIL/uL (4.5-6.0); WHITE BLOOD COUNT (AUTO) 15.5 K/uL (4.3-11.0)
[2024-05-31] MEDS: FUROSEMIDE 40 MG/4 ML VIAL IV ONE (23:51)
[2024-06-01] VITALS (11 sets, daily range): BP systolic 143–163; BP diastolic 79–98; TEMP 97.7–98.4; O2SAT 93–100
[2024-06-01 00:01] LABS: CALCIUM, SERUM 9.1 mg/dL (8.5-10.1); CARBON DIOXIDE 26 mmol/L (21-32); CHLORIDE 101 mmol/L (98-107); CREATININE 1.5 mg/dL (0.6-1.3); GLUCOSE 156 mg/dL (74-106); POTASSIUM 3.8 mmol/L (3.5-5.1); SODIUM SERUM 140 mmol/L (136-145); UREA NITROGEN, BLOOD 34 mg/dL (7-18)
--- NOTE | 2024-06-01 00:15 | NUR ---
trop 77
[2024-06-01 00:22] LABS: ALANINE AMINOTRANSFERASE 31 U/L (12-78); ALBUMIN 2.8 g/dL (3.4-5.0); ALKALINE PHOSPHATASE 126 U/L (46-116); ASPARTATE AMINOTRANSFERASE 27 U/L (15-37); BILIRUBIN,DIRECT 0.7 mg/dL (0.0-0.2); BILIRUBIN,TOTAL 1.7 mg/dL (0.2-1.0); NT-PRO BNP 15316 pg/mL (0-125); TOTAL PROTEIN, SERUM 6.7 g/dL (6.4-8.2)
[2024-06-01] MEDS ORDERED: AZITHROMYCIN 500 MG VIAL ONE (00:27)
[2024-06-01] MEDS ORDERED: CEFTRIAXONE 1GM BAG (ER ONLY) 50 ML IV ONE (00:28)
[2024-06-01] MEDS ORDERED: ASPIRIN 325 MG TABLET ONE (00:28)
[2024-06-01] MEDS: METOPROLOL TARTRATE INJ 5 MG/5 ML AMPUL IV ONE (00:38)
[2024-06-01] MEDS: CEFTRIAXONE 1GM BAG (ER ONLY) 1 GM/50 ML PIGGYBACK IV ONE (00:40)
[2024-06-01] MEDS: ASPIRIN 325 MG TABLET PO ONE (00:51)
[2024-06-01] MEDS: AZITHROMYCIN 500 MG in IV D5W 250 ML IV ONE (01:04)
[2024-06-01] MEDS ORDERED: Z GUARD REMEDY 4 OZ OINT TP PRN (02:00)
[2024-06-01] MEDS ORDERED: MAG HYDROX/AL HYDROX/SIMETH 30 ML UDC PO PRN (02:00)
[2024-06-01] MEDS ORDERED: ONDANSETRON HCL/PF 4 MG/2 ML VIAL IVP PRN (02:00)
[2024-06-01] MEDS ORDERED: ALBUTEROL FS 2.5 MG/3 ML VIAL.NEB ONE (02:04)
[2024-06-01] MEDS: ALBUTEROL FS 2.5 MG/3 ML VIAL.NEB NEB ONE (02:07)
--- NOTE | 2024-06-01 02:08 | NUR ---
REPORT GIVEN TO SHEREE FOR CONTINUED CARE
--- NOTE | 2024-06-01 02:10 | NUR ---
RT AT BEDSIDE FOR BREATHING TREATMENT
--- NOTE | 2024-06-01 02:21 | NUR ---
PORCELAIN ENAMEL SPRAYERFIELD PROFESSIONAL NOTES; RECEIVED PATIENT FROM ER VIA GURNEY. REPORT GIVEN BY JUAN AVENDANO. PATIENT IS A/O X3, BUT VERY WEAK AND SLEEPY TO ANSWER QUESTIONS. PATIENT ORIENTED TO ROOM AND SHOW HOW TO USE THE CALL LIGHT. ON 3LPM OXYGEN VIA NC TOLERATING WELL, BREATHES EVENLY AND UNLABORED. NO SOB/ NOR S/SX OF ACUTE RESPIRATORY DISTRESS AT THIS TIME. ALL BELONGINGS ACCOUNTED FOR, BELONGING SHEET UNSIGNED D/T WEAKNESS BUT ATTACHED IT TO CHART. IV ACCESS ON LEFT HAND #20G-SL, INTACT AND PATENT. VS TAKEN FOLLOWS; BP 143/79, VA 104, RR 20, TEMP 98.2, SPO2 93%. SKIN ASSSESSMENT DONE, WOUND OVER THE RIGHT ELBOW, BLISTER-LIKE LESION PURPLISH IN COLOR AND SOME SCRATCHES LIKE LESIONS OVER OVER THE BUTTOCKS.EDEMA NOTED ON BLE,+2 PITTING. LUNGS HAVE WHEEZES MIDLUNG ABOVE BILATERALLY. NORMOACTIVE BOWEL SOUNDS. NO COMPLAINTS OF PAIN/DISCOMFORT AT THE MOMENT. MAINTAIN ALL SAFETY MEASURES IN PLACE; BED IN LOW AND LOCKED POSITION, BED ALARM ON, SIDE RAILS UPX3, TABLE TRAY AND CALL LIGHT WITHIN EASY REACH. PLAN OF CARE ONGOING.
--- NOTE | 2024-06-01 02:39 | NUR ---
PATIENT TRANSPORTED TO [facility] VIA ACLS PROTOCOL
[2024-06-01] MEDS: ASPIRIN 81 MG TAB.CHEW PO ONE (03:21)
[2024-06-01] MEDS: NITROGLYCERIN 0.4 MG/TAB BOTTLE SL ONE (03:24)
[2024-06-01] MEDS: ENOXAPARIN SODIUM 40 MG/0.4 ML DISP.SYRIN SQ SCH (03:26)
[2024-06-01] MEDS: methylPREDNISolone SOD SUCC 40 MG/ML VIAL IV SCH (05:00)
--- NOTE | 2024-06-01 06:00 | NUR ---
RN NOTE; A SISTER NAMED MICHELLE SANTA FROM [facility] WITH TEL [phone] CALLED UP ASKING FOR HER BROTHER'S CONDITION AND TELLING THAT ALL HIS BROTHERS MEDICAL RECORD CAN BE ACQUIRED FROM THE [facility] AND HE IS FOR DNR. IF NEED SOME MORE INFORMATION , SHE CAN BE CALL ANYTIME
[2024-06-01 06:15] LABS: BASOPHILS % (AUTO) 0.3 % (0.0-2.0); EOSINOPHILS % (AUTO) 0.1 % (0.0-6.0); HEMATOCRIT 39 % (39-51); HEMOGLOBIN 12.4 g/dL (13.5-17.5); LYMPHOCYTES # (AUTO) 0.1 K/uL (0.8-4.8); LYMPHOCYTES % (AUTO) 0.7 % (20.0-44.0); MEAN CORPUSCULAR HEMOGLOBIN 30 PG (26.0-33.0); MEAN CORPUSCULAR HGB CONC 32 g/dl (31.0-36.0); MEAN CORPUSCULAR VOLUME 93 fL (80-96); MONOCYTES # (AUTO) 0.1 K/uL (0.1-1.30); MONOCYTES % (AUTO) 0.8 % (2.0-12.0); NEUTROPHILS # (AUTO) 10.9 K/uL (1.8-8.9); NEUTROPHILS % (AUTO) 98.1 % (43.0-81.0); PLATELET COUNT (AUTO) 164 K/uL (150-450); RED BLOOD CELL COUNT(AUTO) 4.13 MIL/uL (4.5-6.0); RED CELL DISTRIBUTION WIDTH 16.7 % (11.5-15.0); WHITE BLOOD COUNT (AUTO) 11.1 K/uL (4.3-11.0)
--- NOTE | 2024-06-01 06:30 | NUR ---
ASSISTANT PRINTER FLOOR COVERING CLOSING NOTES;310-1 LEFT PATIENT RESTING COMFORTABLY ON BED MORE AWAKE AND ASKING THE TIME FOR DELIVERY OF BREAKFAST, A/O X3, RESPONSIVE BUT STILL WEAK AND SLEEPY TO ANSWER QUESTIONS. STABLE THROUGHOUT SHIFT ON 3LPM OXYGEN VIA NC TOLERATING WELL @ 93% SPO2, BREATHES EVENLY AND UNLABORED. NO SOB/ NOR S/SX OF ACUTE RESPIRATORY DISTRESS AT THIS TIME. IV ACCESS ON LEFT HAND #20G-SL, INTACT AND PATENT.ON CONTINUOUS TELE MONITORING WITH CURRENT READING OF UNCONTROLLED AFIB @ 99-132 BPM. NO CMPLAINTS OF PAIN /DISCOMFORT AT THE MOMENT. ALL NURSING CARE AND NEEDS ANTICIPATED AND MET, ALL DUE MEDS GIVEN ORDERED. KEPT PATIENT CLEAN, WARM AD COMFORTABLE. MAINTAIN ALL SAFETY MEASURES IN PLACE; BED IN LOW AND LOCKED POSITION, BED ALARM ON, SIDE RAILS UPX3, TABLE TRAY AND CALL LIGHT WITHIN EASY REACH. PLAN OF CARE ONGOING,ENDORSE TO AM SHIFT NURSE FOR JEERMY.
[2024-06-01 06:47] LABS: CARBON DIOXIDE 28 mmol/L (21-32); CHLORIDE 101 mmol/L (98-107); CREATININE 1.6 mg/dL (0.6-1.3); GLUCOSE 252 mg/dL (74-106); POTASSIUM 3.4 mmol/L (3.5-5.1); SODIUM SERUM 140 mmol/L (136-145); UREA NITROGEN, BLOOD 30 mg/dL (7-18)
[2024-06-01 06:48] LABS: ALANINE AMINOTRANSFERASE 23 U/L (12-78); ALBUMIN 2.4 g/dL (3.4-5.0); ALKALINE PHOSPHATASE 94 U/L (46-116); ASPARTATE AMINOTRANSFERASE 14 U/L (15-37); BILIRUBIN,DIRECT 0.8 mg/dL (0.0-0.2); BILIRUBIN,TOTAL 1.4 mg/dL (0.2-1.0); MAGNESIUM 2.5 mg/dL (1.8-2.4); NT-PRO BNP 15895 pg/mL (0-125); PHOSPHORUS 3.2 mg/dL (2.5-4.9); TOTAL PROTEIN, SERUM 5.9 g/dL (6.4-8.2)
--- NOTE | 2024-06-01 07:30 | NUR ---
RN OPENING NOTES: RECEIVED PATIENT ASLEEP, EASILY ROUSED. IS A/0X2-3, WITH PERIODS OF CONFUSION. DENIES PAIN AT THIS TIME. PT ON 3LPM OXYGEN VIA NC TOLERATING WELL @ 94% SPO2, BREATHES EVENLY AND UNLABORED. NO S/SX OF ACUTE RESPIRATORY DISTRESS AT THIS TIME. IV ACCESS ON LEFT HAND #20G-SL, INTACT AND PATENT. TELE MONITORING CURRENTLY READS AFIB, HR= 92. ALL SAFETY MEASURES IN PLACE; BED IN LOW AND LOCKED POSITION, BED ALARM ON, SIDE RAILS UPX3, TABLE TRAY AND CALL LIGHT WITHIN EASY REACH. PLAN OF CARE ONGOING
--- NOTE | 2024-06-01 08:00 | NUR ---
RN notes: noted wheezing and coughing upon assessment, sent msg to hospitalist for order
--- NOTE | 2024-06-01 08:03 | NUR ---
WOUND CARE CONSULT: PT PRESENTS WITH PITTING EDEMA, REDNESS TO LEFT FOOT AND LOWER LEG WITH OPEN AREA TO LEFT LATERAL LOWER LEG AND RAISED BLISTER/DISCOLORATION TO RT GREAT TOE, CALLUSES TO ELBOWS, ALL PRESENT ON ADMISSION. DR KOCH CALLED FOR DPM CONSULT. DISCUSSED SKIN PROTECTION WITH NURSING STAFF. MD IN AGREEMENT WITH PLAN OF CARE.
[2024-06-01] MEDS ORDERED: ACET325T53 PO (08:05)
[2024-06-01] MEDS ORDERED: CLON1PAT TD (08:05)
[2024-06-01] MEDS ORDERED: PANT40TA49 PO (08:05)
[2024-06-01] MEDS: FUROSEMIDE 20 MG/2 ML VIAL IV SCH (08:34)
[2024-06-01] MEDS ORDERED: POTASSIUM CHLORIDE 10 MEQ TABLET.SA PO SCH (10:30)
[2024-06-01] MEDS ORDERED: CLONIDINE HCL 0.1MG/24H PTWK 1 EA PATCH TD SCH (10:30)
[2024-06-01] MEDS ORDERED: METHOCARBAMOL (500MG) 500 MG TABLET PO PRN (10:30)
[2024-06-01] MEDS ORDERED: clonazePAM 0.5 MG TABLET PO PRN (11:00)
[2024-06-01] MEDS: NICOTINE PATCH (14MG) 14 MG PATCH.TD24 TD SCH (11:17)
[2024-06-01] MEDS: BENZONATATE 100 MG CAPSULE PO PRN (12:30)
[2024-06-01] MEDS: POTASSIUM CHLORIDE 10 MEQ TABLET.SA PO ONE (14:31)
[2024-06-01] MEDS: risperiDONE 1 MG TABLET PO SCH (17:13)
[2024-06-01] MEDS: APIXABAN 5 MG TABLET PO SCH (17:14)
[2024-06-01] MEDS: DILTIAZEM HCL 30 MG TABLET PO SCH (18:44)
--- NOTE | 2024-06-01 19:30 | NUR ---
MS RN OPENING NOTE RECEIVED PATIENT IN BED AWAKE, A/OX 3 PATIENT IS ABLE TO MAKE NEEDS KNOWN, PATIENT ON OXYGEN 3L VIA NASAL CANNULA, NO COMPLAINTS OF PAIN AT THIS TIME, NO SIGNS OF SOB OR DISTRESS NOTED, IV ACCESS ON THE RIGHT AC #20G SL PATENT AND INTACT, SAFETY MEASURES MAINTAINED BED SET TO LOW AND LOCKED, BED ALARM ON SIDE RAILS UPX3 PLACED CALL LIGHT BEDSIDE TABLE AND URINAL WITHIN EASY REACH WILL CONTINUE WITH PLAN OF CARE
[2024-06-01] MEDS: IPRATROPIUM NEB FS 0.5 MG/2.5 ML AMPUL.NEB NEB SCH (20:02)
[2024-06-01] MEDS: ALBUTEROL FS 2.5 MG/3 ML VIAL.NEB NEB SCH (20:03)
--- NOTE | 2024-06-01 20:24 | NUR ---
RN CLOSING NOTES; PATIENT ASLEEP, EASILY ROUSED. IS A/0X2-3, WITH PERIODS OF CONFUSION. DENIES PAIN AT THIS TIME. PT ON 3LPM OXYGEN VIA NC TOLERATING WELL @ 94% SPO2, BREATHES EVENLY AND UNLABORED. NO S/SX OF ACUTE RESPIRATORY DISTRESS AT THIS TIME. IV ACCESS ON R AC#20, INTACT AND PATENT, SL. TELE MONITORING CURRENTLY READS AFIB, HR= 92. ALL SAFETY MEASURES IN PLACE; BED IN LOW AND LOCKED POSITION, BED ALARM ON, SIDE RAILS UPX3, TABLE TRAY AND CALL LIGHT WITHIN EASY REACH. ENDORSED TO PM SHIFT.
[2024-06-01] MEDS: DIVALPROEX SODIUM 125 MG CAP.SPRINK PO SCH (20:42)
[2024-06-01] MEDS: ACETAMINOPHEN 325 MG TABLET PO PRN (22:49)
--- NOTE | 2024-06-01 22:53 | NUR ---
RN NOTE PATIENT REFUSED TO PUT OXYGENN BACK, PATIENT INSISTED ON NOT WANTING IT BACK, EDUCATED PATIENT EXPLAINED RISK AND BENEFITS, TOGETHER WITH NURSE YINA, PATIENT STILL FIRM ON NOT PUTTING IT BACK WILL CONTINUE TO MONITOR PATIENT
[2024-06-02] VITALS (12 sets, daily range): BP systolic 137–148; BP diastolic 73–90; TEMP 97.5–98.2; O2SAT 95–100
[2024-06-02] MEDS: CEFTRIAXONE 1 G in IV D5W 50 ML IV SCH (00:35)
[2024-06-02] MEDS: AZITHROMYCIN 500 MG in IV D5W 250 ML IV SCH (01:22)
[2024-06-02 06:38] LABS: BASOPHILS % (AUTO) 0.3 % (0.0-2.0); HEMATOCRIT 35 % (39-51); HEMOGLOBIN 11.2 g/dL (13.5-17.5); LYMPHOCYTES # (AUTO) 0.2 K/uL (0.8-4.8); LYMPHOCYTES % (AUTO) 1.3 % (20.0-44.0); MEAN CORPUSCULAR HEMOGLOBIN 30 PG (26.0-33.0); MEAN CORPUSCULAR HGB CONC 32 g/dl (31.0-36.0); MEAN CORPUSCULAR VOLUME 93 fL (80-96); MONOCYTES # (AUTO) 0.7 K/uL (0.1-1.30); MONOCYTES % (AUTO) 4.9 % (2.0-12.0); NEUTROPHILS # (AUTO) 14.3 K/uL (1.8-8.9); NEUTROPHILS % (AUTO) 93.5 % (43.0-81.0); PLATELET COUNT (AUTO) 165 K/uL (150-450); RED BLOOD CELL COUNT(AUTO) 3.76 MIL/uL (4.5-6.0); RED CELL DISTRIBUTION WIDTH 16.8 % (11.5-15.0); WHITE BLOOD COUNT (AUTO) 15.3 K/uL (4.3-11.0)
[2024-06-02 06:50] LABS: POTASSIUM 3.3 mmol/L (3.5-5.1)
[2024-06-02 06:55] LABS: CREATININE, URINE 42.6 MG/DL (30.0-125.0); URINE TOTAL PROTEIN 82.2 mg/dL (0-11.9)
--- NOTE | 2024-06-02 07:05 | NUR ---
MS RN CLOSING NOTE PATIENT IN BED SLEEPING A/OX3 ABLE TO MAKE NEEDS KNOWN ON OXYGEN 3L, VIA NASAL CANNULA, NOTED WHEEZING BUT NO DISTRESS NOTED, WITH AN IV ACCESS ON THE RIGHT AC#20G PATENT AND INTACT, ON SL, ALL DUE MEDS GIVEN, KEPT PATIENT CLEAN AND DRY, SAFETY MEASURES MAINTAINED BED SET TO LOW AND LOCKED BED ALARM ON SIDE RAILS UPX3 PLACED CALL LIGHT BEDSIDE TABLE AND URINAL WITHIN EASY REACH WILL ENDORSE TO INCOMING NURSE FOR CONTINUITY OF CARE
--- NOTE | 2024-06-02 07:25 | NUR ---
RN OPENING NOTES RECEIVED PATIENT IN BED, AWAKE, A/O X3-4, VERBALLY RESPONSIVE AND ABLE TO MAKE NEEDS KNOWN. NO SIGNS OF ACUTE DISTRESS NOTED. ON O2 INHALATION @3LPM VIA N/C, PATIENT WITH EPISODES OF REMOVING CANNULA, EXPLAINED IMPORTANCE OF COMPLIANCE, PATIENT SATURATING WELL. NOTED WITH IV ACCESS ON RIGHT AC #20G, INTACT AND PATENT, FLUSHES WELL. DENIES ANY PAIN OR DISCOMFORT AT THIS TIME. NOTED WITH RIGHT BIG TOE WOUND. SAFETY MEASURE IN PLACE. BED IN LOW AND LOCKED POSITION, SIDE RAILS UP X2, CALL LIGHT AND TABLE PLACED WITHIN EASY REACH. PLAN OF CARE ONGOING.
[2024-06-02 07:27] LABS: CALCIUM, SERUM 8.4 mg/dL (8.5-10.1); CREATININE 1.5 mg/dL (0.6-1.3)
[2024-06-02] MEDS: SERTRALINE HCL 50 MG TABLET PO SCH (08:41)
[2024-06-02] MEDS: PANTOPRAZOLE 40 MG TABLET.DR PO SCH (08:41)
[2024-06-02] MEDS: METOPROLOL SUCCINATE 25 MG TAB.SR.24H PO SCH (08:42)
[2024-06-02] MEDS ORDERED: ARIPIPRAZOLE 5 MG TABLET PO SCH (09:00)
[2024-06-02] MEDS: POTASSIUM CHLORIDE 10 MEQ TABLET.SA PO ONE (09:25)
--- NOTE | 2024-06-02 18:54 | NUR ---
RN CLOSING NOTE PATIENT RESTING IN BED, AWAKE. VERBALLY RESPONSIVE AND ABLE TO MAKE NEEDS KNOWN. NO SIGNS OF ACUTE DISTRESS NOTED. REMAINS ON O2 INHALATION @3LPM VIA N/C, STILL WITH EPISODES OF REMOVING CANNULA, EXPLAINED IMPORTANCE OF COMPLIANCE, PATIENT SATURATING WELL. STILL NOTED WITH WHEEZING. IV ACCESS ON RIGHT AC #20G, INTACT AND PATENT, FLUSHES WELL AND SALINE LOCKED. DENIES ANY PAIN OR DISCOMFORT AT THIS TIME. ALL DUE MEDS GIVEN, BREATHING TX BY RT. WOUND CARE TREATMENT DONE. SAFETY MEASURE MAINTAINED. BED IN LOW AND LOCKED POSITION, SIDE RAILS UP X2, CALL LIGHT AND TABLE PLACED WITHIN EASY REACH. WILL ENDORSE TO NEXT SHIFT FOR CONTINUITY OF CARE.
--- NOTE | 2024-06-02 19:05 | NUR ---
MS RN OPENING NOTES RECEIVED AWAKE ON BED. A/O X3. SOMETIMES ABLE TO MAKE NEEDS KNOWN. ON NC @ 3LPM TOLERATING WELL WITHOUT ANY RESPIRATORY DISTRESS NOTED. WITH IV ACCESS @ RAC #20 SL. PATENT AND INTACT. SAFETY MEASURES IMPLEMENTED. SIDE RAILS X2. CALL LIGHT WITHIN REACH. BED LOCKED AND IN LOWEST POSITION. WILL CONTINUE PLAN OF CARE.
[2024-06-02] MEDS: methylPREDNISolone SOD SUCC 40 MG/ML VIAL IV SCH (20:04)
[2024-06-02] MEDS: ZOLPIDEM TARTRATE 5 MG TABLET PO PRN (21:29)
[2024-06-03] VITALS (10 sets, daily range): BP systolic 164–180; BP diastolic 99–107; TEMP 97.3–98.2; O2SAT 95–100
--- NOTE | 2024-06-03 06:52 | NUR ---
MS RN CLOSING NOTES PATIENT AWAKE ON BED. A/O X3. WITH CONFUSION. ON NC @ 3LPM TOLERATED WELL WITHOUT ANY RESPIRATORY DISTRESS NOTED THE WHOLE SHIFT. WITH IV ACCESS @ RAC #20 SL. PATENT AND INTACT. SAFETY MEASURES MAINTAINED. KEPT COMFORTABLE. DUE MEDS GIVEN. NEEDS ATTENDED. ENDORSED TO MORNING SHIFT NURSE.
--- NOTE | 2024-06-03 07:35 | NUR ---
MS RN OPENING NOTES RECEIVED PATIENT IN BED, AWAKE, A/O X3, EPISODES OF CONFUSION, FREQUENT REORIENTATION NEEDED. VERBALLY RESPONSIVE AND ABLE TO MAKE NEEDS KNOWN. ON O2 INHALATION @2LPM VIA N/C, PATIENT SATURATING WELL AT 98%. NOTED WITH SOB, RR OF 25 BPM. PATIENT REMOVED HIS CANNULA. EDUCATION PROVIDED. NOTED WITH IV ACCESS ON RIGHT AC G#20, LINE CARE DONE, INTACT AND PATENT, NO INFILTRATION NOTED. DENIES ANY PAIN OR DISCOMFORT AT THIS TIME. NOTED WITH RIGHT BIG TOE WOUND, DRESSING IS C/D/I. ALL SAFETY MEASURES IN PLACE. BED IN LOW AND LOCKED POSITION, SIDE RAILS UP X2, CALL LIGHT AND TABLE PLACED WITHIN EASY REACH. WILL CONTINUE PLAN OF CARE.
[2024-06-03 08:02] LABS: CALCIUM, SERUM 9.2 mg/dL (8.5-10.1); CREATININE 1.4 mg/dL (0.6-1.3); POTASSIUM 3.4 mmol/L (3.5-5.1)
[2024-06-03 08:33] LABS: BASOPHILS # (AUTO) 0.1 K/uL (0.0-0.2); BASOPHILS % (AUTO) 0.4 % (0.0-2.0); HEMATOCRIT 37 % (39-51); HEMOGLOBIN 11.9 g/dL (13.5-17.5); LYMPHOCYTES # (AUTO) 0.3 K/uL (0.8-4.8); LYMPHOCYTES % (AUTO) 1.6 % (20.0-44.0); MEAN CORPUSCULAR HEMOGLOBIN 30 PG (26.0-33.0); MEAN CORPUSCULAR HGB CONC 32 g/dl (31.0-36.0); MEAN CORPUSCULAR VOLUME 93 fL (80-96); MONOCYTES # (AUTO) 0.3 K/uL (0.1-1.30); NEUTROPHILS # (AUTO) 15.4 K/uL (1.8-8.9); PLATELET COUNT (AUTO) 170 K/uL (150-450); RED BLOOD CELL COUNT(AUTO) 3.98 MIL/uL (4.5-6.0)
[2024-06-03] MEDS: MAGNESIUM HYDROXIDE 30 ML UDC PO PRN (09:43)
[2024-06-03] MEDS: POTASSIUM CHLORIDE 20 MEQ TAB.PRT.SR PO ONE (09:43)
--- NOTE | 2024-06-03 14:14 | NUR ---
PATIENT REFUSING RESPIRATORY TREATMENT AT THIS TIME. EDUCATION PROVIDED AND PATIENT STATES HE UNDERSTAND TO CALL IF HE CHANGES HIS MIND.
--- NOTE | 2024-06-03 14:20 | NUR ---
RN NOTES - PATIENT C/O MILD PAIN, GIVEN TYLENOL 650 MG PO ORDERED, WILL CONTINUE TO MONITOR
--- NOTE | 2024-06-03 18:47 | NUR ---
MS RN CLOSING NOTES PATIENT IN LYING IN BED, A/O X3, EPISODES OF CONFUSION, FREQUENT REORIENTATION NEEDED. VERBALLY RESPONSIVE AND ABLE TO MAKE NEEDS KNOWN. ON ROOM AIR AT THE MOMENT, PATIENT REMOVED HIS NC, WITH O2 INHALATION @2LPM VIA N/C ORDER. PATIENT SATURATING AT 98%. STILL NOTED WITH SOB, RR OF 22 BPM. STILL WITH IV ACCESS ON RIGHT AC G#20, LINE CARE DONE, INTACT AND PATENT, NO INFILTRATION NOTED. DENIES ANY PAIN OR DISCOMFORT AT THIS TIME. WOUND CARE PROVIDED. ALL DUE MEDS GIVEN, ALL NEEDS ATTENDED. ALL SAFETY MEASURES MAINTAINED: BED IN LOW AND LOCKED POSITION, SIDE RAILS UP X2, CALL LIGHT AND TABLE PLACED WITHIN EASY REACH. WILL CONTINUE PLAN OF CARE. Addendum: 06/03/24 at 1849 by HALLEY RAE RN WILL ENDORSE TO ONCOMING NURSE.
--- NOTE | 2024-06-03 22:09 | NUR ---
RN NOTES PATIENT COMPLAINED OF PAIN AND IRRITATED, GAVE PRN TYLENOL 650 MG PO ORDERED. PLAN OF CARE ONGOING.
[2024-06-04] VITALS (10 sets, daily range): BP systolic 160–173; BP diastolic 106–118; TEMP 97.3–97.9; O2SAT 93–100
--- NOTE | 2024-06-04 02:20 | NUR ---
RN NOTES PT REFUSED TO PUT HIS OXYGEN VIA NC, REMOVING IT EVERY TIME RN TRIED TO PLACE IT. ADDITIONALLY, REFUSED TO BE CONNECTED TO HIS IV SHOUTING "NO!" AT THE RN. EDUCATION PROVIDED, EXPLAINED THE IMPORTANCE OF HIS DUE MEDS, PT STILL REFUSED ANTIBIOTICS AND DILTIAZEM. DEPARTMENT OF SOCIOLOGY CHAIR AND CHARGE JUAN MEJIA MADE AWARE. PLAN OF CARE ONGOING.
--- NOTE | 2024-06-04 07:18 | NUR ---
MS RN CLOSING NOTES PATIENT IN BED ASLEEP. A&O X 2-3, CONFUSED AT TIMES AND SHORT TEMPERED. PATIENT STABLE ON 2LPM OF O2 VIA NASAL CANNULA, SATURATING WELL AT 100%. RESPIRATION IS 18 SIGNIFICANT XPIRATORY WHEEZING NOTED.. WITH IV ACCESS ON RIGHT AC G#20, INTACT AND FLUSHING WELL. NONCOMPLIANT TO HIS ANTIBIOTICS AND DILTIAZEM. RIGHT BIG TOE WOUND CARE DONE. PATIENT AMBULATORY TO THE BATHROOM WITH STEADY GAIT. FALL AND SAFETY MEASURES ARE IN PLACE: BED ON LOW LOCKED POSITION, SIDERAILS RAISED, ALARM ON AND CALL LIGHT WITHIN EASY REACH AT ALL TIMES. ENDORSED TO DAY SHIFT NURSE FOR JEREMY.
--- NOTE | 2024-06-04 07:46 | NUR ---
MS RN NOTES PATIENT RESTING IN BED, EYES CLOSED, RISE AND FALL OF THE CHEST NOTED, NO SIGNS OF DISTRESS NOTED. PATIENT ON 2LPM OF O2 VIA NASAL CANNULA. WITH IV ACCESS ON RIGHT AC G#20, INTACT AND FLUSHING WELL. FALL AND SAFETY MEASURES ARE IN PLACE: BED ON LOW LOCKED POSITION, SIDERAILS RAISED, ALARM ON AND CALL LIGHT WITHIN EASY REACH AT ALL TIMES. PLAN OF CARE ONGOING.
[2024-06-04 11:43] LABS: HEMATOCRIT 39 % (39-51); HEMOGLOBIN 12.5 g/dL (13.5-17.5); LYMPHOCYTES # (AUTO) 0.3 K/uL (0.8-4.8); LYMPHOCYTES % (AUTO) 2.3 % (20.0-44.0); MEAN CORPUSCULAR HEMOGLOBIN 30 PG (26.0-33.0); MEAN CORPUSCULAR HGB CONC 32 g/dl (31.0-36.0); MEAN CORPUSCULAR VOLUME 93 fL (80-96); MONOCYTES # (AUTO) 0.5 K/uL (0.1-1.30); MONOCYTES % (AUTO) 3.2 % (2.0-12.0); NEUTROPHILS % (AUTO) 94.5 % (43.0-81.0); PLATELET COUNT (AUTO) 162 K/uL (150-450); RED BLOOD CELL COUNT(AUTO) 4.19 MIL/uL (4.5-6.0); RED CELL DISTRIBUTION WIDTH 16.7 % (11.5-15.0); WHITE BLOOD COUNT (AUTO) 14.9 K/uL (4.3-11.0)
[2024-06-04 11:49] LABS: CALCIUM, SERUM 9.5 mg/dL (8.5-10.1); CREATININE 1.5 mg/dL (0.6-1.3); POTASSIUM 3.8 mmol/L (3.5-5.1)
--- NOTE | 2024-06-04 13:26 | NUR ---
RN NOTE PATIENT C/O HEADACHE, PRN TYLENOL GIVEN. WILL MONITOR.
--- NOTE | 2024-06-04 18:40 | NUR ---
END OF SHIFT NOTE PATIENT RESTING IN BED, EYES CLOSED, RISE AND FALL OF THE CHEST NOTED, WITH SOME SOB WITH EXERTION NOTED,NO SIGNS OF DISTRESS NOTED. PATIENT ON 3LPM OF O2 VIA NASAL CANNULA. WITH IV ACCESS ON RIGHT AC G#20, INTACT AND FLUSHING WELL. ALL DUE MEDS GIVEN ORDERED, NURSING CARE/ NEEDS ATTENDED WELL. FALL AND SAFETY MEASURES ARE IN PLACE: BED ON LOW LOCKED POSITION, SIDERAILS RAISED, ALARM ON AND CALL LIGHT WITHIN EASY REACH AT ALL TIMES. WILL ENDORSE TO [facility] NURSE FOR CONTINUITY OF CARE.
--- NOTE | 2024-06-04 19:10 | NUR ---
MS RN OPENING NOTES RECEIVED PATIENT IN BED, AWAKE, A/O X3, EPISODES OF CONFUSION: RE-ORIENT PT. VERBALLY RESPONSIVE AND ABLE TO MAKE NEEDS KNOWN. ON O2 INHALATION @2LPM VIA NC, SATURATING AT 98%, PT HAS EPISODE OF , PT REMINDED NOT REMOVE OXYGEN. IV ACCESS ON RIGHT AC G#20 INTACT AND PATENT. NO S/SX OF INFILTRATION NOTED. DENIES ANY PAIN OR DISCOMFORT AT THIS TIME. RIGHT BIG TOE WOUND, DRESSING IS C/D/I. ALL FALL AND SAFETY MEASURES IN PLACE. BED IN LOW AND LOCKED POSITION, SIDE RAILS UP X2, CALL LIGHT AND TABLE PLACED WITHIN EASY REACH. PLAN OF CARE ONGOING.
[2024-06-04] MEDS: MONTELUKAST SODIUM (10MG) 10 MG TABLET PO SCH (21:08)
[2024-06-04] MEDS: GUAIFENESIN LA 600 MG TABLET.SA PO SCH (21:08)
[2024-06-05] VITALS (9 sets, daily range): BP systolic 160–167; BP diastolic 101–126; TEMP 97.5–98.1; O2SAT 96–100
--- NOTE | 2024-06-05 00:26 | NUR ---
RN NOTES PT REFUSED DILTIAZEM, EDUCATE ITS RISK AND BENEFITS DESPITE REFUSED IT. SHOUTING AND STATING "GET OUT OF MY ROOM ". PLAN OF CARE ONGOING.
--- NOTE | 2024-06-05 01:00 | NUR ---
RN NOTES PT REFUSED AZITHROMYCIN, EDUCATE OT ON ITS RISK AND BENEFITS BUT PT STILL REFUSED IT BY SHOUTING AND STATING "NO". P0LAN OF CARE ONGOING.
--- NOTE | 2024-06-05 06:39 | NUR ---
MS RN CLOSING NOTES: 310-1 RECEIVED PATIENT IN BED, AWAKE, A/O X3, EPISODES OF CONFUSION: RE-ORIENT PT. VERBALLY RESPONSIVE AND ABLE TO MAKE NEEDS KNOWN. ON O2 INHALATION @2LPM VIA NC, SATURATING AT 98%, PT HAS EPISODE OF , PT REMINDED NOT REMOVE OXYGEN. IV ACCESS ON RIGHT AC G#20 INTACT AND PATENT. NO S/SX OF INFILTRATION NOTED. DENIES ANY PAIN OR DISCOMFORT AT THIS TIME. RIGHT BIG TOE WOUND, DRESSING IS C/D/I. ALL NEEDS ATTENDED, ALL DUE MEDS GIVEN ORDERED, KEPT PT CLEAN AND DRY, PT EXPRESSES NO FURTHER CONCERNS. ALL FALL AND SAFETY MEASURES IN PLACE. BED IN LOW AND LOCKED POSITION, SIDE RAILS UP X2, CALL LIGHT AND TABLE PLACED WITHIN EASY REACH. WILL ENDORSE TO AM NURSE FOR JEREMY.
--- NOTE | 2024-06-05 07:30 | NUR ---
MS RN OPENING NOTES RECEIVED PT IN BED AWAKE, RESTING COMFORTABLY. PT IS A/O X3, ON O2 2LPM VIA NC-TOLERATING WELL, BREATHING EVENLY AND UNLABORED. NO DISTRESS NOTED. DENIES PAIN OR DISCOMFORT AT THIS TIME. IV ACCESS ON RAC #20G SL, INTACT AND PATENT. WITH RIGHT BIG TOE DRESSING IN PLACED, C/D/I. FALL SAFETY PRECAUTIONS IN PLACED: HOB ELEVATED, BED ALARM ON, BED LOCKED IN LOWEST POSITION. SIDERAILS UP X2. CALL LIGHT WITHIN REACH. PLAN OF CARE ONGOING.
[2024-06-05 09:41] LABS: BASOPHILS % (AUTO) 0.1 % (0.0-2.0); HEMATOCRIT 39 % (39-51); HEMOGLOBIN 12.4 g/dL (13.5-17.5); LYMPHOCYTES # (AUTO) 0.3 K/uL (0.8-4.8); LYMPHOCYTES % (AUTO) 2.2 % (20.0-44.0); MEAN CORPUSCULAR HEMOGLOBIN 29 PG (26.0-33.0); MEAN CORPUSCULAR HGB CONC 32 g/dl (31.0-36.0); MEAN CORPUSCULAR VOLUME 93 fL (80-96); MONOCYTES # (AUTO) 0.4 K/uL (0.1-1.30); MONOCYTES % (AUTO) 3.1 % (2.0-12.0); NEUTROPHILS # (AUTO) 13.3 K/uL (1.8-8.9); NEUTROPHILS % (AUTO) 94.6 % (43.0-81.0); PLATELET COUNT (AUTO) 156 K/uL (150-450); RED CELL DISTRIBUTION WIDTH 16.7 % (11.5-15.0)
[2024-06-05 10:01] LABS: CREATININE 1.5 mg/dL (0.6-1.3); POTASSIUM 3.9 mmol/L (3.5-5.1)
[2024-06-05] MEDS: IPRATROPIUM NEB FS 0.5 MG/2.5 ML AMPUL.NEB NEB SCH (10:15)
--- NOTE | 2024-06-05 10:15 | NUR ---
RT Duplicate Atrovent order
--- NOTE | 2024-06-05 10:45 | NUR ---
RN NOTES PT IS STILL WHEEZING AND COUGHING. T.O. DR. MORALES TO START XOPENEX 0.63 MG PRN Q6H.
[2024-06-05] MEDS: LEVALBUTEROL HCL NEB 1.25 MG/0.5 ML VIAL.NEB NEB PRN (10:56)
--- NOTE | 2024-06-05 11:14 | NUR ---
RN NOTES PT BLOOD SUGAR IS 352 THIS MORNING,. PT HAS NO ACCUCHECKS AND SSI ORDERED. INFORMED ISAIAH WASTEWATER TREATMENT ENGINEER, ORDERED TO CHECK A1C AND MODERATE SSI.
[2024-06-05] MEDS ORDERED: DEXTROSE 50%-WATER 50 ML DISP.SYRIN IV PRN (11:30)
--- NOTE | 2024-06-05 11:43 | NUR ---
RN NOTES ACCUCHECK 305. PT REFUSING SSI COVERAGE. EDUCATED ON RISKS. PT STILL REFUSED. ISAIAH QUIROZ INFORMED.
[2024-06-05] MEDS: BLOOD SUGAR DIAGNOSTIC 1 EACH STRIP VI SCH (12:13)
[2024-06-05] MEDS: INSULIN REGULAR, HUMAN 100 UNIT/ML 3 ML VIAL SQ PRN (12:14)
--- NOTE | 2024-06-05 19:10 | NUR ---
MS RN OPENING NOTES RECEIVED PT IN BED AWAKE. A/O X3- EASILY GET IRRITABLE, ON O2 2LPM VIA NC-TOLERATING WELL, BREATHING EVENLY AND UNLABORED. NO S/SX OF ANY ACUTE RESPIRATORY DISTRESS NOTED NOR SOB/ AT THIS TIME. DENIES PAIN OR DISCOMFORT AT THIS TIME. IV ACCESS ON RAC #20G SL, INTACT AND PATENT. WITH RIGHT BIG TOE DRESSING IN PLACED, C/D/I. ALL FALL AND SAFETY PRECAUTIONS IN PLACED: HOB ELEVATED, BED ALARM ON, BED LOCKED IN LOWEST POSITION. SIDERAILS UP X2. CALL LIGHT WITHIN REACH. PLAN OF CARE ONGOING.
--- NOTE | 2024-06-05 19:16 | NUR ---
MS RN CLOSING NOTES PT IN BED RESTING COMFORTABLY. PT IS A/O X3, ON O2 2LPM VIA NC-TOLERATING WELL, BREATHING EVENLY AND UNLABORED. NO DISTRESS NOTED. DENIES PAIN OR DISCOMFORT AT THIS TIME. IV ACCESS ON RAC #20G SL, INTACT AND PATENT. WITH RIGHT BIG TOE DRESSING IN PLACED, C/D/I. ALL MEDS GIVEN ORDERED. ALL NEEDS ATTENDED. FALL SAFETY PRECAUTIONS IN PLACED: HOB ELEVATED, BED ALARM ON, BED LOCKED IN LOWEST POSITION. SIDERAILS UP X2. CALL LIGHT WITHIN REACH. ENDORSED TO NEXT SHIFT
[2024-06-05] MEDS: *INSULIN REGULAR(HUMULIN R)HUM 100 UNIT/ML VIAL SQ PRN (21:37)
--- NOTE | 2024-06-05 21:37 | NUR ---
RN NOTES PT BLOOD SUGAR: 239, OFFERED INSULIN AND EDUCATE PT AND EXPLAINED ITS BENEFITS AND RISK DESPITE PT REFUSED INSULIN AND STATED "I ALREADY HAD THAT EARLIER". PLAN OF CARE ONGOING. WILL CONTINUE TO MONITOR.
[2024-06-06] VITALS (12 sets, daily range): BP systolic 138–179; BP diastolic 98–109; TEMP 97.7–98.1; O2SAT 95–100
--- NOTE | 2024-06-06 04:58 | NUR ---
RN NOTES PT PULLED OUT HIS IV, OFFERED FOR RE-INSERTION, PT REFUSE IT. EXPLAINED ITS RISK AND BENEFITS DESPITE PT STILL REFUSED IT. PLAN OF CARE ON GOING.
--- NOTE | 2024-06-06 06:46 | NUR ---
MS RN CLOSING NOTES: 310-1 PT IN BED AWAKE. A/O X3- EASILY GET IRRITATE, ON O2 2LPM VIA NC-TOLERATING WELL, BREATHING EVENLY AND UNLABORED. NO S/SX OF ANY ACUTE RESPIRATORY DISTRESS NOTED NOR SOB/ AT THIS TIME. DENIES PAIN OR DISCOMFORT AT THIS TIME. NO IV ACCESS AT THIS MOMENT PT PULLED OUT HIS IV AND REFUSED RE-INSERTION. WITH RIGHT BIG TOE DRESSING IN PLACED, C/D/I. ALL DUE MEDS GIVEN ORDERED, ALL NEEDS ATTENDED. KEPT PT CLEAN AND DRY, PT EXPRESSES NO FURTER CONCERN. ALL FALL AND SAFETY PRECAUTIONS IN PLACED: HOB ELEVATED, BED ALARM ON, BED LOCKED IN LOWEST POSITION. SIDERAILS UP X2. CALL LIGHT WITHIN REACH. WILL ENDORSE TO AM NURSE FOR JEREMY.
[2024-06-06 07:01] LABS: BASOPHILS % (AUTO) 0.1 % (0.0-2.0); HEMATOCRIT 38 % (39-51); HEMOGLOBIN 12.3 g/dL (13.5-17.5); LYMPHOCYTES # (AUTO) 0.3 K/uL (0.8-4.8); LYMPHOCYTES % (AUTO) 2.4 % (20.0-44.0); MEAN CORPUSCULAR HEMOGLOBIN 30 PG (26.0-33.0); MEAN CORPUSCULAR HGB CONC 33 g/dl (31.0-36.0); MEAN CORPUSCULAR VOLUME 91 fL (80-96); MONOCYTES # (AUTO) 0.4 K/uL (0.1-1.30); MONOCYTES % (AUTO) 2.8 % (2.0-12.0); NEUTROPHILS # (AUTO) 12.9 K/uL (1.8-8.9); NEUTROPHILS % (AUTO) 94.7 % (43.0-81.0); PLATELET COUNT (AUTO) 160 K/uL (150-450); RED BLOOD CELL COUNT(AUTO) 4.16 MIL/uL (4.5-6.0); RED CELL DISTRIBUTION WIDTH 16.6 % (11.5-15.0); WHITE BLOOD COUNT (AUTO) 13.6 K/uL (4.3-11.0)
--- NOTE | 2024-06-06 07:15 | NUR ---
MS RN OPENING NOTES RECEIVED PT IN BED AWAKE RESTING COMFORTABLY. PT IS A/O X3, ON O2 2LPM VIA NC-TOLERATING WELL, BREATHING EVENLY AND UNLABORED.WITH AUDIBLE WHEEZING NOTED. DENIES PAIN OR DISCOMFORT AT THIS TIME. NO IV ACCESS, REFUSED PLACEMENT PER CLINICAL EDUCATION ACADEMIC COORDINATOR RN. WITH RIGHT BIG TOE DRESSING IN PLACED, C/D/I. ALL MEDS GIVEN ORDERED. ALL NEEDS ATTENDED. FALL SAFETY PRECAUTIONS IN PLACED: HOB ELEVATED, BED ALARM ON, BED LOCKED IN LOWEST POSITION. SIDERAILS UP X2. CALL LIGHT WITHIN REACH. PLAN OF CARE ONGOING.
[2024-06-06 08:47] LABS: CALCIUM, SERUM 8.9 mg/dL (8.5-10.1); CREATININE 1.4 mg/dL (0.6-1.3); POTASSIUM 3.5 mmol/L (3.5-5.1)
[2024-06-06] MEDS ORDERED: FUROSEMIDE 20 MG TABLET PO SCH (09:30)
[2024-06-06] MEDS ORDERED: CLONIDINE HCL 0.1 MG TABLET PO PRN (09:30)
--- NOTE | 2024-06-06 09:34 | NUR ---
RN NOTES PT HAS NO IV ACCESS, REFUSED REINSERTION, REINFORCED EDUCATION THAT HE NEEDS IV ABX BUT STILL REFUSED. PT HAS NOT BEEN TAKING IV ABX FOR [address] MROALES DURING MD ROUNDS. ORDERED TO D/C IV MEDS AND START LEVAQUIN 750 PO MG X5 DAYS, LASIX 20 MG PO QD, AND PREDNISONE 40 MG QD TO START NOW.
[2024-06-06] MEDS: FUROSEMIDE 20 MG TABLET PO SCH (09:56)
[2024-06-06] MEDS: predniSONE 20 MG TABLET PO SCH (09:56)
[2024-06-06] MEDS: LEVOFLOXACIN (250MG) 250 MG TABLET PO SCH (09:56)
[2024-06-06] MEDS: CLONIDINE HCL 0.1 MG TABLET PO PRN (11:22)
[2024-06-06] MEDS: BUMETANIDE (1 MG) 1 MG TABLET PO SCH (12:45)
[2024-06-06] MEDS: DILTIAZEM HCL 30 MG TABLET PO SCH (17:11)
--- NOTE | 2024-06-06 17:35 | NUR ---
RN NOTES PT REFUSED ACCUCHECK COVERAGE FOR 1200 AND 1730 DESPITE BLOOD SUGAR IS ABOVE 250s. PT EDUCATION REINFORCED. PT STILL STRONGLY REFUSED.
--- NOTE | 2024-06-06 18:22 | NUR ---
MS RN CLOSING NOTES PT IN BED AWAKE RESTING COMFORTABLY. PT IS A/O X3, ON O2 2LPM VIA NC-TOLERATING WELL, BREATHING EVENLY AND UNLABORED. WITH AUDIBLE WHEEZING NOTED. DENIES PAIN OR DISCOMFORT AT THIS TIME. NO IV ACCESS, REFUSED REINSERTION, MD AWARE. WITH RIGHT BIG TOE DRESSING IN PLACED, REFUSED WOUND DRESSING TO BE CHANGED. REFUSED INSULIN COVERAGE. ALL MEDS GIVEN ORDERED. ALL NEEDS ATTENDED. FALL SAFETY PRECAUTIONS IN PLACED: HOB ELEVATED, BED ALARM ON, BED LOCKED IN LOWEST POSITION. SIDERAILS UP X2. CALL LIGHT WITHIN REACH. ENDORSED TO NEXT SHIFT.
--- NOTE | 2024-06-06 19:00 | NUR ---
RN opening notes Pt is sitting in bed comfortably watching TV. Pt is alert and orientedX2-3 and irritable. On 2 L NC. No SOB. No S/S of distress noted. No IV site. Pt keep refusing despites explaination of risks and benefits. Safety precautions is maintained. bed at low position, brakes locked, side rails upX2, hob elevated, bed alarm is on and call lights is within reach. will continue to monitor.
--- NOTE | 2024-06-06 20:00 | NUR ---
RN notes Pt refuses VS @ 1999. explained risks and beenfits. Pt agitated easily. Pt keep refusing. will continue to monitor. will try again.
[2024-06-07] VITALS (16 sets, daily range): BP systolic 153–174; BP diastolic 72–100; TEMP 97.7–98.6; O2SAT 91–100
--- NOTE | 2024-06-07 | NUR ---
RN notes Midnight VS is taken and documented.
--- NOTE | 2024-06-07 00:53 | NUR ---
RN notes Pt is having insomnia and requesting a sleeping pill. administered ambien/1 tab/po/prn as ordered. safety precautions is maintained. will continue to monitor.
--- NOTE | 2024-06-07 04:00 | NUR ---
RN notes Wound care provided as ordered. Pt tolerated well. will continue to monitor.
--- NOTE | 2024-06-07 06:44 | NUR ---
RN closing notes Pt is resting in bed comfortably. Pt is alert and orientedX2-3 and irritable. On 2 L NC. No SOB. No S/S of distress noted. No IV site. Still resfuing IV insertion. Routine meds were given as ordered. wound care provided as ordered. Kept Pt clean, dry and comfortbale. Safety precautions is maintained. bed at low position, brakes locked, side rails upX2, hob elevated, bed alarm is on and call lights is within reach. Will endorse to am nurse for JEREMY.
--- NOTE | 2024-06-07 07:30 | NUR ---
OPENING NOTES RECEIVED PATIENT IN BED AWAKE, A/O X3, ON O2 2LPM VIA NC-TOLERATING WELL, BREATHING EVEN AND UNLABORED, DENIES PAIN OR DISCOMFORT AT THIS TIME. NO IV ACCESS, REFUSED PLACEMENT PER [place] DIRECTOR RN. WITH RIGHT BIG TOE DRESSING IN PLACED, C/D/I. FALL SAFETY PRECAUTIONS IN PLACED: HOB ELEVATED, BED ALARM ON, BED LOCKED IN LOWEST POSITION. SIDERAILS UP X2. CALL LIGHT WITHIN REACH. PLAN OF CARE ONGOING.
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
[2024-06-07] MEDS ORDERED: PRED20TA PO (09:09)
[2024-06-07] MEDS ORDERED: CLON0.5T4 PO (09:09)
[2024-06-07] MEDS ORDERED: LEVO250T59 PO (09:09)
[2024-06-07] MEDS ORDERED: DILT30TA14 PO (09:09)
[2024-06-07] MEDS ORDERED: DIVA125C2 PO (09:09)
[2024-06-07] MEDS ORDERED: BUME1TAB8 PO (09:09)
--- NOTE | 2024-06-07 09:30 | NUR ---
RN NOTE PATIENT REFUSE DRESSING CHANGE, INFORM OF BENEFITS OF CLEANING HIS WOUND, PATIENT BECAME IRRITABLE, "I TOLD YOU, NO". PLAN OF CARE ONGOING
[2024-06-07] MEDS ORDERED: PRED50TA PO (10:24)
--- NOTE | 2024-06-07 12:02 | NUR ---
RN NOTE ACCUCHECK 195 MG/DL, PATIENT REFUSED INSULIN, EDUCATED ABOUT IMPORTANCE OF TAKING MEDICATION BUT PATIENT REFUSED. PLAN OF CARE ONGOING
--- NOTE | 2024-06-07 16:35 | NUR ---
RN NOTE BP 174/88, ADMINISTERED CLONIDINE 0.2 MG ORDERED. PLAN OF CARE ONGOING
--- NOTE | 2024-06-07 16:46 | NUR ---
RN NOTE PATIENT NOTED TO BE COUGHING, SATURATION 97%, PRN TESSALON PEARLS ADMINISTERED ORDERED. PLAN OF CARE ONGOING
--- NOTE | 2024-06-07 17:31 | NUR ---
RN NOTE ACCUCHECK 219 MG/DL, PATIENT REFUSED INSULIN, EDUCATED ABOUT IMPORTANCE OF TAKING MEDICATION BUT PATIENT STILL REFUSE. PLAN OF CARE ONGOING
--- NOTE | 2024-06-07 19:00 | NUR ---
CLOSING NOTES PATIENT IN BED AWAKE, A/O X2-3. ON ROOM AIR, NO SOB VERBALIZED DURING REPORT CHANGED. PATIENT DENIES PAIN OR DISCOMFORT AT THIS TIME. NO IV ACCESS, REFUSES REINSERTION AND REFUSES WOUND TREATMENT. PATIENT REMOVED RIGHT BIG TOE DRESSING. NEEDS ATTENED, OFERED TO CHANGE PATIENT GOWN, REFUSES CLOTHING CHANGE. FALL SAFETY PRECAUTIONS IN PLACED: HOB ELEVATED, BED ALARM ON, BED LOCKED IN LOWEST POSITION. SIDERAILS UP X2. CALL LIGHT WITHIN REACH. ENDORSE PLAN OF CARE TO [facility] NURSE.
--- NOTE | 2024-06-07 19:10 | NUR ---
RN opening notes Pt is sitting in bed comfortably watching TV. Pt is alert and orientedX2-3 and irritable. On room air. No SOB. No S/S of distress noted. No IV site. Pt keep refusing despites explaination of risks and benefits. Safety precautions is maintained. bed at low position, brakes locked, side rails upX2, hob elevated, bed alarm is on and call lights is within reach. will continue to monitor.
--- NOTE | 2024-06-07 22:06 | NUR ---
RN notes Pt's blood sugar HS 260. Pt refused coverage. explained risks and benefits. Pt keep refusing. Pt agitated easily. will continue to monitor.
--- NOTE | 2024-06-07 22:08 | NUR ---
RN notes Pt requsting ambien for sleep. Primary nurse open ambien in front of Pt and handed to Pt, all of a sudden Pt stated " This is not ambien!! Explained to Pt that this is ambien and it says cheien that Pt is taking every night. Called a charge nurse Arpit MARTINEZ to the room. Charge nurse explained that this is ambien for sleeping. Pt still refusing and believing that is not ambien. Returned cheien to the [facility] and witnessed by Arpit MARTINEZ. will call pharmacy in the am.
--- NOTE | 2024-06-07 23:57 | NUR ---
RN notes Pt called and asking for ambien med for sleeping. Pt stated " I am sorry. It was my mistake. I need ambien to sleep. Informed and notify charge nurse and house sup. administered ambien/1 tab/po/prn as ordered. safety precautions is maintained. will continue to monitor.
[2024-06-08] VITALS (12 sets, daily range): BP systolic 152–167; BP diastolic 82–91; TEMP 98.5; O2SAT 95–100
--- NOTE | 2024-06-08 03:21 | NUR ---
RN notes Pt is complaining of sob. Elliot RT at the bedside for breathing tx.
--- NOTE | 2024-06-08 03:22 | NUR ---
Patient given PRN neb treatment for complaints of SOB. RN aware.
--- NOTE | 2024-06-08 04:00 | NUR ---
Rn notes Pt is resting in bed comfortably. No SOB. no S/S of distress noted. will continue to monitor.
--- NOTE | 2024-06-08 04:50 | NUR ---
RN notes Wound care provided as ordered. Pt tolerated well. will continue to monitor.
--- NOTE | 2024-06-08 06:30 | NUR ---
RN closing notes Pt is resting in bed comfortably. Pt is alert and orientedX2-3 and irritable. On 1 L NC. No SOB. No S/S of distress noted. No IV site. Pt keep refusing IV insertion. Routine meds were given as ordered. wound care provided as ordered. Kept Pt clean, dry and comfortbale. Safety precautions is maintained. bed at low position, brakes locked, side rails upX2, hob elevated, bed alarm is on and call lights is within reach. Will endorse to am nurse for JEREMY.
--- NOTE | 2024-06-08 06:45 | NUR ---
RN notes Pt blood sugar AC 208. Pt refuses coverage despites explanation of risks and benefits. Pt keep refusing. will continue to monitor.
--- NOTE | 2024-06-08 07:20 | NUR ---
RN notes Spoke with Pharmacist Perfecto regarding ina.
--- NOTE | 2024-06-08 07:30 | NUR ---
OPENING NOTES RECEIVED PATIENT IN BED ASLEEP, AWAKENS TO VERBAL STIMULI, A/O X3, ON O2 1LPM VIA NC-TOLERATING WELL, BREATHING EVEN AND UNLABORED, DENIES PAIN OR DISCOMFORT AT THIS TIME. NO IV ACCESS, REFUSED REINSERTION PER DRILLER MULTIPLE SPINDLE RN. WITH RIGHT BIG TOE DRESSING IN PLACED, C/D/I. FALL SAFETY PRECAUTIONS IN PLACE, HOB ELEVATED, BED ALARM ON, BED LOCKED IN LOWEST POSITION. SIDE RAILS UP X2. CALL LIGHT WITHIN REACH. PLAN OF CARE ONGOING.
--- NOTE | 2024-06-08 08:26 | NUR ---
RN NOTE PATIENT REFUSED DEPAKOTE, PANTOPRAZOLE, PREDNISONE,, ELIQUIS, SERTRALINE, AND BUMETANIDE. EDUCATE ABOUT THE IMPORTANCE OF MEDICATION, BUT PATIENT BECOMES AGITATED, "I SAID NO, I NEED IT. OFFERED MEDICATION 3X, PATIENT YELLING GET OUT. PLAN OF CARE ONGOING Addendum: 06/08/24 at 1733 by RADHA WATTS RN RN NOTE PATIENT REFUSED DEPAKOTE, PANTOPRAZOLE, PREDNISONE,, ELIQUIS, SERTRALINE, AND BUMETANIDE. EDUCATE ABOUT THE IMPORTANCE OF MEDICATION, BUT PATIENT BECOMES AGITATED, "I SAID NO, I DON'T NEED IT. OFFERED MEDICATION 3X, PATIENT YELLING GET OUT. PLAN OF CARE ONGOING
[2024-06-08] MEDS: predniSONE 20 MG TABLET PO SCH (09:00)
--- NOTE | 2024-06-08 09:07 | NUR ---
RN NOTE PATIENT REFUSED PREDNISONE EDUCATE ABOUT THE IMPORTANCE OF MEDICATION, BUT PATIENT BECOMES AGITATED, "I SAID NO. OFFERED MEDICATION 3X, PATIENT YELLING GET OUT. PLAN OF CARE ONGOING
--- NOTE | 2024-06-08 11:47 | NUR ---
RN NOTE [facility] [phone] GAVE REPORT TO DANIEL
--- NOTE | 2024-06-08 12:07 | NUR ---
RN NOTE PATIENT REMOVED THE DRESSING AND REFUSES TO DO THE WOUND TREATMENT, REFUSES PHOT, REFUSES BLOOD SUGAR CHECK. INFORM PATIENT OF THE BENEFITS OF TREATMENT AND PROCEDURE PATIENT VERBALIZE, "I'M JUST WAITING FOR MENTAL HEALTH ORDERLY, NOPE". DISCHARGE PLANNING ONGOING
--- NOTE | 2024-06-08 14:26 | NUR ---
RN NOTE BP 165/100 BP PRIOR TO DISCHARGE, CLONIDINE 0.2 MG PRN ADMINISTERED ORDERED. PLAN OF CARE ONGOING
--- NOTE | 2024-06-08 14:58 | NUR ---
RN NOTE RECHECKED BP 155/85, DISCHARGE ONGOING
--- NOTE | 2024-06-08 15:00 | NUR ---
DISCHARGE NOTE PATIENT DISCHARGE IN STABLE CONDITION, A/O X2-3. VITAL SIGNS TAKEN AND RECORDED. IV ACCESS REMOVED, PATIENT REFUSED SKIN ASSESSMENT AND PHOTOS. PATIENT REFUSED TO CHANGE CLOTHES, REFUSED DRESSING CHANGE. ALL BELONGINGS CHECKED AND BELONGINGS LIST SIGNED. HEALTH TEACHING AND DISCHARGE INSTRUCTION GIVEN TO SNF RN. INSTRUCTED PATIENT TO MAKE A FOLLOW UP WITH PCP. INSTRUCTED PATIENT IN CASE OF EMERGENCY TO CALL 911 OR GO TO THE NEAREST ER. PATIENT LEFT VIA GURNEY WITH NO SIGNS OF DISTRESS ACCOMPANIED BY 2 DELIVERER OUTSIDE. CHARGE NURSE JENNIFER AWARE OF DISCHARGE.
== END 2024-06-08 15:53 | DRG 166 ==
LOC: ER 23:11 → TELE 06-01 01:45 → MED 06-01 15:13
PROVIDERS: ADMIT Nurse Practitioner Family; ATTEND Internal Medicine
PROC: 0JBQ0ZZ Excision of Right Foot Subcutaneous Tissue and Fascia, Open Approach (ICD-10-PCS; principal; 2024-06-02)
DX: J44.1 Chronic obstructive pulmonary disease with (acute) exacerbation (principal); I21.A1 Myocardial infarction type 2; J96.00 Acute respiratory failure, unspecified whether with hypoxia or hypercapnia; N17.0 Acute kidney failure with tubular necrosis; I50.23 Acute on chronic systolic (congestive) heart failure; E44.0 Moderate protein-calorie malnutrition; I13.0 Hypertensive heart and chronic kidney disease with heart failure and stage 1 through stage 4 chronic kidney disease, or unspecified chronic kidney disease; R65.10 Systemic inflammatory response syndrome (SIRS) of non-infectious origin without acute organ dysfunction; E11.621 Type 2 diabetes mellitus with foot ulcer; F25.1 Schizoaffective disorder, depressive type; D64.9 Anemia, unspecified; E11.22 Type 2 diabetes mellitus with diabetic chronic kidney disease; E11.65 Type 2 diabetes mellitus with hyperglycemia; E78.5 Hyperlipidemia, unspecified; E87.6 Hypokalemia; E88.09 Other disorders of plasma-protein metabolism, not elsewhere classified; I25.10 Atherosclerotic heart disease of native coronary artery without angina pectoris; I27.20 Pulmonary hypertension, unspecified; I48.0 Paroxysmal atrial fibrillation; N18.9 Chronic kidney disease, unspecified; M89.8X9 Other specified disorders of bone, unspecified site; Z79.01 Long term (current) use of anticoagulants; Z68.28 Body mass index [BMI] 28.0-28.9, adult; D72.829 Elevated white blood cell count, unspecified; Z20.822 Contact with and (suspected) exposure to COVID-19; L97.519 Non-pressure chronic ulcer of other part of right foot with unspecified severity; F17.210 Nicotine dependence, cigarettes, uncomplicated; E11.42 Type 2 diabetes mellitus with diabetic polyneuropathy
CPT/HCPCS: 36415; 71045-TC; 73630-TC; 76770-TC; 80048-TC; 80076-TC; 82570-TC; 82962-TC; 83735-TC; 83880; 84100-TC; 84300-TC; 84439-TC; 84443-TC; 84480; 84484-TC; 85025-TC; 87081-TC; 93307-TC; 94760-TC; 94761-TC; 94762-TC; 94799-TC; A4223; A6403; G0378; J0456; J0696; J1650; J1815; J1940; J2919; J3475; J3490; J7030; J7050; J7060